=== PATIENT | female | born 1965 | race Caucasian/White ===

== ENCOUNTER → 2019-09-03 15:09 | Outpatient (BNVA) | payer SELFPAY | PROVIDERS: Family Provider Nurse Practitioner Family; Visit Provider Nurse Practitioner | DX: M19.041 Primary osteoarthritis, right hand (principal) | CPT/HCPCS: 73130 ==

== ENCOUNTER 2022-02-12 10:58 | Outpatient (CLI) | payer MEDICAID, SELFPAY ==
--- NOTE | 2022-02-12 11:03 | MM_ITS ---
WS: [id number] VIEWS: MLO and CC views both breasts. 3D digital tomosynthesis is also included in this exam. Comparison made with prior exam of 07/14/2009. Findings: There was no sign of mass, architectural distortion or suspicious calcification in either breast. Sc attered fibroglandular densities MM/[place] [id number] Impression: BI-RADS: 2-Benign FOLLOW-UP: 1 Year Follow-up This mammogram was also analyzed by the Computer Aided Detection System [employer]2 [employer] Project Manager.
== END 2022-02-12 10:59 | disposition home or self-care (01) ==
LOC: RAD 11:00
PROVIDERS: PCP Registered Nurse; Visit Provider Registered Nurse
DX: Z12.31 Encounter for screening mammogram for malignant neoplasm of breast (principal)
CPT/HCPCS: 77063; 77067

== ENCOUNTER → 2022-10-20 15:48 | Outpatient (BNVA) | payer MEDICAID, SELFPAY | PROVIDERS: PCP Registered Nurse; Visit Provider Family Medicine | DX: E11.9 Type 2 diabetes mellitus without complications (principal); Z79.4 Long term (current) use of insulin; B19.20 Unspecified viral hepatitis C without hepatic coma | CPT/HCPCS: 80053; 80061; 83036; 84443; 85025; 87522; 87902 ==

== ENCOUNTER 2022-11-17 08:18 | Outpatient (CLI) | payer MEDICAID, SELFPAY ==
--- NOTE | 2022-11-17 08:30 | US_ITS ---
WS: [id number] ULTRASOUND ABDOMEN LIMITED CLINICAL INFORMATION: B19.20 - Unspecified viral hepatitis C without hepatic coma COMPARISON: None. FINDINGS: Liver Size: Normal. Craniocaudal length: 13.4 cm. Echogenicity: Coarse Surface nodularity: None. Mass (size and location): None. Bile ducts Intrahepatic ducts: Normal. Common bile duct diameter: 0.6 cm. Gallbladder Removed Pancreas Not well visualized Right kidney: Normal. Hydronephrosis: None. Size: 10.0 cm x 6.1 cm x 5.9 cm. Abdominal aorta and IVC Visualized portions are normal. Ascites: None. US/US liver [id number] IMPRESSION: 1. Coarse hepatic echogenicity. Recommend correlation with liver function test s. Normal size liver. 2. Prior cholecystectomy. 3. Normal common bile duct. 4. No hydronephrosis in RIGHT kidney.
== END 2022-11-17 08:19 | disposition home or self-care (01) ==
LOC: RAD 08:21
PROVIDERS: PCP Registered Nurse; Visit Provider Student in an Organized Health Care Education/Training Program
DX: B19.20 Unspecified viral hepatitis C without hepatic coma (principal)
CPT/HCPCS: 76705

== ENCOUNTER → 2022-12-02 10:08 | Outpatient (BNVA) | payer MEDICAID, SELFPAY | PROVIDERS: PCP Registered Nurse; Visit Provider Student in an Organized Health Care Education/Training Program | DX: B19.20 Unspecified viral hepatitis C without hepatic coma (principal); Z11.4 Encounter for screening for human immunodeficiency virus [HIV] | CPT/HCPCS: 36415; 80053; 86705; 86706; 86709; 86803; 87340; 87522; 87806; 99205 ==

== ENCOUNTER 2023-01-17 10:12 | Outpatient (CLI) | payer MEDICAID, SELFPAY ==
[2023-01-17 12:09] LABS: Alanine Aminotransferase 153 U/L (0-33); Albumin Level 3.5 g/dL (3.5-5.2); Alkaline Phosphatase 119 U/L (35-105); Aspartate Amino Transferase 146 U/L (0-32); Blood Urea Nitrogen 13 mg/dL (6-20); Calcium 9.2 mg/dL (8.5-10.5); Carbon Dioxide 26 mmol/L (22-29); Chloride 105 mmol/L (98-107); Globulin 2.6 g/dL (1.3-4.6); Glomerular Filtration Rate 74.2 mL/min (90-130); Glucose 229 mg/dL (65-115); Osmolality Calculated 297 mOsm/kg (285-295); Sodium 140 mmol/L (136-145); Total Bilirubin 0.6 mg/dL (0.15-1.2); Total Protein 6.1 g/dL (6.6-8.7)
[2023-01-17 12:22] LABS: Hepatitis B Surface Antigen Non-Reactive (Nonreactive)
[2023-01-18 07:48] LABS: Hepatitis B Surface AG NON-REACTIVE (NON-REACTIVE)
== END 2023-01-17 10:13 | disposition home or self-care (01) ==
PROVIDERS: PCP Family Medicine; Visit Provider Student in an Organized Health Care Education/Training Program
DX: B19.20 Unspecified viral hepatitis C without hepatic coma (principal); Z11.59 Encounter for screening for other viral diseases
CPT/HCPCS: 36415; 80053; 82977; 83883; 84450; 84460; 84520; 87340

== ENCOUNTER 2023-03-04 13:52 | Outpatient (CLI) | payer MEDICAID, SELFPAY ==
--- NOTE | 2023-03-04 14:17 | MM_ITS ---
WS: [id number] BILATERAL 3D TOMOSYNTHESIS DIGITAL SCREENING MAMMOGRAPHY WITH CAD CLINICAL INFORMATION: SCREENING HISTORY: Screening mammogram. No current complaints. COMPARISON: 02/12/2022 TECHNIQUE: Bilateral CC and MLO views. FINDINGS: Scattered fibroglandular densities bilaterally. No suspicious focal mass, asymmetry, calcifications, or architectural distortion. No evidence of malignancy. IMPRESSION: MM/[place] [id number] BI-RADS: 1-Negative FOLLOW UP: 1 Year Follow-up Recommend return to annual screening mammography.
== END 2023-03-04 13:53 | disposition home or self-care (01) ==
PROVIDERS: PCP Family Medicine; Visit Provider Family Medicine
DX: Z12.31 Encounter for screening mammogram for malignant neoplasm of breast (principal)
CPT/HCPCS: 77063; 77067

== ENCOUNTER → 2023-03-22 17:24 | Outpatient (BNVA) | payer MEDICAID, SELFPAY | PROVIDERS: PCP Family Medicine; Visit Provider Family Medicine | DX: R74.01 Elevation of levels of liver transaminase levels (principal); E11.9 Type 2 diabetes mellitus without complications; M25.511 Pain in right shoulder | CPT/HCPCS: 80061; 83036 ==

== ENCOUNTER → 2023-04-22 10:26 | Outpatient (BNVA) | payer MEDICAID, SELFPAY | PROVIDERS: PCP Family Medicine; Referring Provider Family Medicine; Visit Provider Physician Assistant | DX: M25.511 Pain in right shoulder (principal); M75.41 Impingement syndrome of right shoulder | CPT/HCPCS: 20610; 73030; 99203; J3301 ==

== ENCOUNTER → 2023-06-20 14:56 | Outpatient (BNVA) | payer MEDICAID, SELFPAY | PROVIDERS: PCP Nurse Practitioner Family; Visit Provider Nurse Practitioner Family | DX: E11.9 Type 2 diabetes mellitus without complications (principal) | CPT/HCPCS: 80053; 81003; 83036; 85025 ==

== ENCOUNTER → 2023-06-30 14:56 | Outpatient (BNVA) | payer MEDICAID, SELFPAY | PROVIDERS: PCP Nurse Practitioner Family; Visit Provider Nurse Practitioner Women's Health | DX: N95.0 Postmenopausal bleeding (principal) | CPT/HCPCS: 87624 ==

== ENCOUNTER → 2023-07-14 15:24 | Outpatient (BNVA) | payer MEDICAID, SELFPAY | PROVIDERS: PCP Nurse Practitioner Family; Visit Provider Nurse Practitioner Women's Health | DX: N95.0 Postmenopausal bleeding (principal); D25.9 Leiomyoma of uterus, unspecified | CPT/HCPCS: 76830 ==

== ENCOUNTER → 2023-07-26 10:08 | Outpatient (BNVA) | payer MEDICAID, SELFPAY | PROVIDERS: PCP Nurse Practitioner Family; Visit Provider Physician Assistant | DX: M75.41 Impingement syndrome of right shoulder | CPT/HCPCS: 99213 ==

== ENCOUNTER 2023-08-23 10:45 | Outpatient (CLI) | payer MEDICAID, SELFPAY ==
--- NOTE | 2023-08-23 11:00 | MR_ITS ---
WS: [id number] MRI RIGHT SHOULDER NONCONTRAST TECHNIQUE: Sagittal T2, coronal T1, T2 and proton density imaging. Axial gradient PDE imaging. CLINICAL INFORMATION: right shoulder pain COMPARISON: None. FINDINGS: Moderate to advanced degenerative arthritis AC joint. Mild subacromial spurring. Fluid and edema in t he AC joint. Impingement on the distal supraspinatus. High-grade complete tear of the distal supraspi natus with tendon retraction to the level of the acromion. Tendon retraction measures 1.5 cm. Mild th inning of the infraspinatus with tendinopathy. Small amount of subacromial subdeltoid fluid. Normal teres minor. Biceps tendon appears intact within the bicipital groove. Subscapularis tendon ap pears intact. Tendinopathy subscapularis tendon. Fluid in the subcoracoid bursa. Biceps labral anchor appears intact. Degenerative fraying of the tiana oid labrum. IMPRESSION: 1. Moderate to advanced arthritis AC joint with fluid and edema. Subacromial subdeltoid fluid. Subac romial spurring with narrowing of the subacromial space. 2. High-grade complete tear of the supraspinatus with 1.5 cm of tendon retraction to the level of th e acromion. 3. Infraspinatus intact with tendinopathy. 4. Teres minor and subscapularis appear intact. Tendinopathy subscapularis tendon. 5. Biceps tendon appears intact within the bicipital groove. 6. Fluid in the subcoracoid bursa.
== END 2023-08-23 10:46 | disposition home or self-care (01) ==
LOC: RAD 10:46
PROVIDERS: PCP Nurse Practitioner Family; Visit Provider Physician Assistant
DX: M75.121 Complete rotator cuff tear or rupture of right shoulder, not specified as traumatic (principal); M19.011 Primary osteoarthritis, right shoulder; M75.41 Impingement syndrome of right shoulder; M67.813 Other specified disorders of tendon, right shoulder
CPT/HCPCS: 73221

== ENCOUNTER → 2023-08-26 10:15 | Outpatient (BNVA) | payer MEDICAID, SELFPAY | PROVIDERS: PCP Nurse Practitioner Family; Visit Provider Physician Assistant | DX: M75.41 Impingement syndrome of right shoulder (principal) | CPT/HCPCS: 99214 ==

== ENCOUNTER 2023-09-08 07:22 | Day surgery (SDC) | payer MEDICAID, SELFPAY ==
--- NOTE | 2023-09-07 22:59 | W.PM.OPSFHP ---
Same Day Surgery H&P Indication for Procedure/HPI DATE OF PROCEDURE: September 07, 2023 CHIEF COMPLAINT/INDICATIONFOR SURGICAL PROCEDURE: postmenopausal bleeding PREOP DIAGNOSIS: postmenopausal bleeding PLANNED PROCEDURE: Operation Date: 09/08/23 09:15 Proposed Procedures p Hysteroscopy, endometrial sampling, possible endometrial polypectomy 82587, N95.0(Not Applicable) - Rudi Gomez MD s Poss Poylpectomy(Not Applicable) - Rudi Gomez MD 58 y.o. SA3 LNMP many years ago Had bleeding episode in June Now scheduled for hysteroscopy, endometrial sampling, possible endometrial polypectomy Medications/Allergies* Home Medications Medication Instructions Recorded Confirmed Type potassium chloride 10 mg PO DIRECTED 10/20/22 08/26/23 History sitagliptin phosphate 25 mg tablet 25 mg PO DAILY 09/07/23 09/07/23 History (Cindy) Allergies/Adverse Reactions Allergy/AdvReac Type Severity Reaction Status Date / Time acetaminophen [From Tylenol] Allergy Intermediate sick Verified 08/26/23 11:23 levofloxacin [From Levaquin] Allergy ALGY-Rash Verified 09/07/23 14:43 Sulfa (Sulfonamide Allergy ALGY-Hives Verified 09/07/23 14:43 Antibiotics) Pertinent History/Comorbid Conditions* Medical History (Updated 07/27/23 @ 13:29 by GIULIANA Campbell) Post-menopausal bleeding Gallbladder calculus with acute cholecystitis History of gallbladder disease Family History (Updated 06/30/23 @ 14:17 by Sandie Rosales) Ovarian cancer Sister CAD (coronary artery disease) Mother Hyperlipidemia Father Brother Lung disease Mother Cancer Mother Hypertension Mother Denies family history of Diabetes Chronic kidney disease (CKD) Stroke Social History Smoking and tobacco/nicotine status: current every day tobacco/nicotine user smokeless tobacco Smokeless tobacco user: chewing tobacco Second hand smoke exposure: No Alcohol intake: former Year of sobriety/quit date alcohol: 2014 Substance/Drug Use: current Substance/Drug use frequency: Special occassions/opportunity only Adopted: No Household members: spouse Housing: Manufactured/Mobile home Marital status: service: No Current occupational status: unemployed Pertinent Exam Findings alert, oriented x 3, clear to auscultation bilaterally and regular rate & rhythm Recommendations Surgery/Procedure today Coding Level of Care Code Acute Code for Chg Fwd Time Spent (min) 20
[2023-09-08] VITALS (10 sets, daily range): BP systolic 131–195; BP diastolic 82–108; PULSE 59–76; RESP 14–17; TEMP 36.5–36.8; O2SAT 96–100; BMI 33.5
--- NOTE | 2023-09-08 07:50 | ANES.PREANE2 ---
Pre-Anesthetic Assessment Height/Weight: Height 1.57 m Preop Diagnosis: postmenopausal bleeding Operation Date: 09/08/23 09:15 Proposed Procedures p Hysteroscopy, endometrial sampling, possible endometrial polypectomy 87592, N95.0(Not Applicable) - Rudi Gomez MD s Poss Poylpectomy(Not Applicable) - Rudi Gomez MD Familial anesthetic complications: None Was Beta Lloyd taken within 24 hours: N/A Was Clonidine taken within 24 hours: N/A Last intake: > 8hrs Social Tobacco and No alcohol chews Exam alert, oriented x 3, clear to auscultation bilaterally and regular rate & rhythm Airway Mallampati: Class II Dentition: other (none on top, poor dentition) Chronic Renal Insufficiency Hepatic history hep C, enlarged liver Metabolic Diabetes Mellitus Anesthetic Plan ASA status: 3 Anesthesia: General Risk of > 500 ml blood loss (7ml/kg in children): No Medications/Allergies Home Medications Medication Instructions Recorded Confirmed Last Taken Type aspirin 81 mg tablet,delayed 81 mg PO DAILY 90 days #90 tabs 10/20/22 09/07/23 09/07/23 Rx release potassium chloride 10 mg PO DIRECTED PRN Cramps 10/20/22 09/08/23 07/21/23 History glucagon 1 mg solution for 1 mg SUBCUT Q20M PRN hypoglycemia 11/10/22 09/07/23 Unknown Rx injection (GlucaGen HypoKit) #1 ea furosemide 20 mg tablet (Lasix) 20 mg PO DAILY PRN edema 15 days 01/11/23 09/07/23 08/04/23 Rx #15 tabs insulin glargine 100 unit/mL (3 10 unit (0.1 mL) SUBCUT QAM #15 mL 01/11/23 09/07/23 07/06/23 Rx mL) subcutaneous pen (Lantus Solostar U-100 Insulin) potassium chloride 10 mEq 10 meq PO DAILY PRN with lasix 15 01/11/23 09/07/23 07/21/23 Rx tablet,extended release (Klor-Con) days #15 tabs metformin 500 mg tablet 250 mg (1/2 x 500 mg) PO BID 90 05/20/23 09/07/23 Unknown Rx days #90 tabs benzonatate 100 mg capsule 100 mg PO TID PRN cough #20 caps 0109/07/23 09/07/23 Rx celecoxib 200 mg capsule (Celebrex) 200 mg PO BID shoulder pain #60 07/05/23 09/07/23 09/07/23 Rx caps sitagliptin phosphate 25 mg tablet 25 mg PO DAILY 09/07/23 09/07/23 09/07/23 History (Cindy) Allergies Allergy/AdvReac Type Severity Reaction Status Date / Time acetaminophen [From Tylenol] Allergy Intermediate sick Verified 08/26/23 11:23 levofloxacin [From Levaquin] Allergy ALGY-Rash Verified 09/07/23 14:43 Sulfa (Sulfonamide Allergy ALGY-Hives Verified 09/07/23 14:43 Antibiotics) [facility] Anesthesia Medical History Post-menopausal bleeding Gallbladder calculus with acute cholecystitis History of gallbladder disease Family History Mother CAD (coronary artery disease) Cancer Hypertension Lung disease Father Hyperlipidemia Sister Ovarian cancer Brother Hyperlipidemia Denies family history of Diabetes Chronic kidney disease (CKD) Stroke Social History Smoking and tobacco/nicotine status: current every day tobacco/nicotine user smokeless tobacco Smokeless tobacco user: chewing tobacco Second hand smoke exposure: No Alcohol intake: former Year of sobriety/quit date alcohol: 2014 Substance/Drug Use: current Substance/Drug use frequency: Special occassions/opportunity only Adopted: No Household members: spouse Housing: Manufactured/Mobile home Marital status: service: No Current occupational status: unemployed Data Anesthesia Cardiac Studies: No Data to Display
--- NOTE | 2023-09-08 08:06 | W.PM.OPSUD ---
Surgery/Procedure H&P Update DATE OF PROCEDURE: September 08, 2023 DATE H&P PERFORMED: 09/07/23 H&P UPDATE INFORMATION: I have reviewed H&P completed within last 30 days, I have examined patient prior to procedure and No changes to prior documentation PREOP DIAGNOSIS: postmenopausal bleeding PLANNED PROCEDURE: Operation Date: 09/08/23 09:15 Proposed Procedures p Hysteroscopy, endometrial sampling, possible endometrial polypectomy 32823, N95.0(Not Applicable) - Rudi Gomez MD s Poss Poylpectomy(Not Applicable) - Rudi Gomez MD
[2023-09-08 08:25] LABS: Glucose Point of Care 152 mg/dL (70-110)
[2023-09-08] MEDS: sodium chloride 0.9% 1,000 ML 30 ML IV (08:28)
--- NOTE | 2023-09-08 09:50 | P.OP_ITS ---
Operative Report Date of procedure: September 08, 2023 Pre-op diagnosis: postmenopausal bleeding Post-op diagnosis: same Post-op findings: two benign-appearing endometrial polyps Minimal endometrial tissue Procedure done: hysteroscopy Endometrial polypectomy with Myosure Curettage of uterus Implants: none Specimens removed/disposition: endometrial tissue Surgeon: Rudi Gomez MD Anesthesia: MAC Estimated blood loss (mL): 0 Complications: none Condition: stable Disposition: PACU Brief History: 58 y.o. with postmenopausal bleeding Procedure: Informed consent signed. Patient was taken to the operating room. Anesthesia was induced. Patient was placed in dorsolithotomy position, prepped and draped for hysteroscopy. A bivalve speculum was placed in the vagina. The anterior lip of the cervix was grasped with a sharp-toothed tenaculum. The cervix was serially dilated with Hegar dilators. The uterus was sounded to 8 cm. A hysteroscope was placed into the endometrial cavity. The endometrial cavity was seen have two benign- appearing endometrial polyps. There was minimal endometrial tissue. A Myosure device was used to remove the polyps and perform endometrial sampling. The endometrial cavity was seen to be intact. The hysteroscope and Myosure were then removed. Endometrial curettage was done with a sharp curette. Endometrial tissue was sent to pathology. The sharp-toothed tenaculum was removed. There was no bleeding from the endometrial cavity or cervix. The patient was then placed supine and awakened and taken to the PACU. Postop condition: stable EBL: none Sponge and instruments counts were normal x 2 Complications: none
[2023-09-08] MEDS: hyDRALAzine 20 mg/mL INJ 1 mL (10:17)
--- NOTE | 2023-09-08 11:20 | ANE.PACU2 ---
Inpatient post-anesthesia follow up: Airway intact: Yes Vital signs: Temperature 97.9 F Pulse Rate 76 Respiratory Rate 16 Blood Pressure 141/82 Pulse Oximetry 100 Oxygen Delivery Me thod Room Air Oxygen Flow Rate 6 Fraction of Inspir ed Oxygen Hydration adequate: Yes Nausea and vomiting: No Pain level: 1 Mental status: Baseline
== END 2023-09-08 11:20 | disposition home or self-care (01) ==
PROVIDERS: PCP Nurse Practitioner Family; Visit Provider Obstetrics & Gynecology
PROC: 0UJD8ZZ Inspection of Uterus and Cervix, Via Natural or Artificial Opening Endoscopic (ICD-10-PCS; CPT 58555; principal; 2023-09-08 09:05)
PROC: (CPT 58558; 2023-09-08 09:05)
DX: N95.0 Postmenopausal bleeding (principal); N84.0 Polyp of corpus uteri; F17.220 Nicotine dependence, chewing tobacco, uncomplicated; Z86.19 Personal history of other infectious and parasitic diseases; E11.9 Type 2 diabetes mellitus without complications; Z79.82 Long term (current) use of aspirin
CPT/HCPCS: 58558; 36416; 82962; 88305; J0360; J1100; J2250; J2405; J2704; J3010; J7030

== ENCOUNTER 2023-10-05 07:19 | Day surgery (SDC) | payer MEDICAID, SELFPAY ==
[2023-10-05] VITALS (11 sets, daily range): BP systolic 122–161; BP diastolic 72–116; PULSE 57–80; RESP 13–22; TEMP 36.1–36.4; O2SAT 92–100; BMI 33.5
[2023-10-05] MEDS: sodium chloride 0.9% 1,000 ML 30 ML IV (07:48)
[2023-10-05] MEDS: scopolamine 1.5 Patch 1 PATCH TRANSDERMA (08:01)
[2023-10-05 08:18] LABS: Glucose Point of Care 152 mg/dL (70-110)
--- NOTE | 2023-10-05 09:22 | P.ANESASSM_ITS ---
Pre-Anesthetic Assessment Height/Weight: Height 1.57 m Weight 83.007 kg Temp Pulse Resp BP Pulse Ox O2 Del Method 97.3 F L 80 15 161/116 99 Room Air 10/05/23 07:47 10/05/23 07:47 10/05/23 07:47 10/05/23 07:47 10/05/23 07:47 10/05/23 07:48 Operation Date: 10/05/23 09:10 Proposed Procedures p Shoulder Arthroscopy(Right) - Job Alpine, DO s Rotator Cuff Repair - Arthroscopy(Right) - Job Alpine, DO s AC Joint Resection(Right) - Job Alpine, DO s Subacromial Decompression(Right) - Job Alpine, DO s possible biceps tenotomy versus tenodesis(Right) - Job Alpine, DO Familial anesthetic complications: None Was Beta Lloyd taken within 24 hours: N/A Was Clonidine taken within 24 hours: N/A Last intake: > 8 hrs Social Tobacco and No alcohol Exam alert, oriented x 3, clear to auscultation bilaterally and regular rate & rhythm Airway Mallampati: Class III Hepatic Hepatitis Metabolic Diabetes Mellitus Anesthetic Plan ASA status: 3 Anesthesia: General and Regional (specify below) Risk of > 500 ml blood loss (7ml/kg in children): No Medications/Allergies Home Medications Medication Instructions Recorded Confirmed Last Taken Type aspirin 81 mg tablet,delayed 81 mg PO DAILY 90 days #90 tabs 10/20/22 10/04/23 09/27/23 Rx release potassium chloride 10 mg PO DIRECTED PRN Cramps 10/20/22 10/04/23 10/04/23 History glucagon 1 mg solution for 1 mg SUBCUT Q20M PRN hypoglycemia 11/10/22 10/04/23 10/04/23 Rx injection (GlucaGen HypoKit) #1 ea furosemide 20 mg tablet (Lasix) 20 mg PO DAILY PRN edema 15 days 01/11/23 10/04/23 10/04/23 Rx #15 tabs insulin glargine 100 unit/mL (3 10 unit (0.1 mL) SUBCUT QAM #15 mL 01/11/23 10/04/23 10/04/23 Rx mL) subcutaneous pen (Lantus Solostar U-100 Insulin) metformin 500 mg tablet 250 mg (1/2 x 500 mg) PO BID 90 05/20/23 10/04/23 Unknown Rx days #90 tabs benzonatate 100 mg capsule 100 mg PO TID PRN cough #20 caps 07/05/23 10/04/23 10/04/23 Rx celecoxib 200 mg capsule (Celebrex) 200 mg PO BID shoulder pain #60 07/05/23 10/04/23 10/04/23 Rx caps sitagliptin phosphate 25 mg tablet 25 mg PO DAILY 09/07/23 10/04/23 09/27/23 History (Januvia) tramadol 50 mg tablet 50 mg PO BID PRN pain #10 tabs 09/08/23 10/04/23 10/04/23 Rx Allergies Allergy/AdvReac Type Severity Reaction Status Date / Time acetaminophen [From Tylenol] Allergy Intermediate sick Verified 10/05/23 07:39 levofloxacin [From Levaquin] Allergy ALGY-Rash Verified 10/05/23 07:39 Sulfa (Sulfonamide Allergy ALGY-Hives Verified 10/05/23 07:39 Antibiotics) [facility] Anesthesia Medical History Post-menopausal bleeding Gallbladder calculus with acute cholecystitis History of gallbladder disease Family History Mother CAD (coronary artery disease) Cancer Hypertension Lung disease Father Hyperlipidemia Sister Ovarian cancer Brother Hyperlipidemia Denies family history of Diabetes Chronic kidney disease (CKD) Stroke Social History Smoking and tobacco/nicotine status: current every day tobacco/nicotine user smokeless tobacco Smokeless tobacco user: chewing tobacco Second hand smoke exposure: No Alcohol intake: former Year of sobriety/quit date alcohol: 2014 Substance/Drug Use: current Substance/Drug use frequency: Special occassions/opportunity only Adopted: No Household members: spouse Housing: Manufactured/Mobile home Marital status: service: No Current occupational status: unemployed Data Anesthesia Cardiac Studies: No Data to Display
--- NOTE | 2023-10-05 09:25 | ANES.PROC ---
Anesthesia Procedures Procedure/Date: 10/05/23 Nerve Block ^: Nerve Block 1: Main Anesthesia: general anesthesia Time Out Performed: Yes Consent: requested by attending/covering physician, from patient, from other, risks and benefits reviewed and patient agrees to proceed Nerve block location: interscalene (R) Anesthesia monitors applied: pulse oximetry, EKG, BP cuff and oxygen Nerve block position: semi sitting Anesthetic Used: ropivicaine 0.5% (30 ml) and with decadron (4 mg) Ultrasound used to: recognize landmarks, visualize and ID brachial plexus, in supraclavicular region and visualize and ID interscalene groove Nerve Stimulator Used?: No Interscalene/Femoral BLK: 2 stimuplex 22 g needle used for position and inplane approach, visualize local anesthetic spread and no vascular puncture identified Injection: neg aspiration of heme Patient Tolerated Procedure: well and no complications Complications: none
--- NOTE | 2023-10-05 09:35 | W.PM.OPSFHP ---
Same Day Surgery H&P Indication for Procedure/HPI DATE OF PROCEDURE: October 05, 2023 CHIEF COMPLAINT/INDICATIONFOR SURGICAL PROCEDURE: Right shoulder pain with rotator cuff tear, subacromial impingement AC joint arthritis PREOP DIAGNOSIS: Right shoulder rotator cuff tear, subacromial impingement, AC joint thrice, PLANNED PROCEDURE: Operation Date: 10/05/23 09:10 Proposed Procedures p Shoulder Arthroscopy(Right) - Job Maritza, DO s Rotator Cuff Repair - Arthroscopy(Right) - Job Fitzpatrickatt, DO s AC Joint Resection(Right) - Job Mayaguez, DO s Subacromial Decompression(Right) - Job Mayaguez, DO s possible biceps tenotomy versus tenodesis(Right) - Job Mayaguez, DO Medications/Allergies* Home Medications Medication Instructions Recorded Confirmed Type potassium chloride 10 mg PO DIRECTED PRN Cramps 10/20/22 10/04/23 History sitagliptin phosphate 25 mg tablet 25 mg PO DAILY 09/07/23 10/04/23 History (Cindy) Allergies/Adverse Reactions Allergy/AdvReac Type Severity Reaction Status Date / Time acetaminophen [From Tylenol] Allergy Intermediate sick Verified 10/05/23 07:39 levofloxacin [From Levaquin] Allergy ALGY-Rash Verified 10/05/23 07:39 Sulfa (Sulfonamide Allergy ALGY-Hives Verified 10/05/23 07:39 Antibiotics) Pertinent History/Comorbid Conditions* Medical History (Updated 07/27/23 @ 13:29 by GIULIANA Campbell) Post-menopausal bleeding Gallbladder calculus with acute cholecystitis History of gallbladder disease Family History (Updated 06/30/23 @ 14:17 by Sandie Rosales) Ovarian cancer Sister CAD (coronary artery disease) Mother Hyperlipidemia Father Brother Lung disease Mother Cancer Mother Hypertension Mother Denies family history of Diabetes Chronic kidney disease (CKD) Stroke Social History Smoking and tobacco/nicotine status: current every day tobacco/nicotine user smokeless tobacco Smokeless tobacco user: chewing tobacco Second hand smoke exposure: No Alcohol intake: former Year of sobriety/quit date alcohol: 2014 Substance/Drug Use: current Substance/Drug use frequency: Special occassions/opportunity only Adopted: No Household members: spouse Housing: Manufactured/Mobile home Marital status: service: No Current occupational status: unemployed Pertinent Exam Findings alert, oriented x 3, operative site marked and procedure specific exam findings Refer to last office note on 08/26/2023 for for full detailed orthopedic examination as patient has a block this morning on preoperative evaluation examination as listed below: Right Shoulder -Tender to palpation over ac joint, biceps tendon, lateral and posterior aspect of shoulder -Range of motion active 0-70 degrees with passive 70-100 degrees, abduction 0-60 degrees- pain with all ROM -Rotator cuff strength external and internal 5/5 -Jobes test-positive with weakness and pain -Speed's Test-positive with weakness and pain -O'Briens test-positive with weakness and pain -Sagastume impingement-positive -Empty can test-positive with weakness and pain -Radial pulse 2+, normal cap refill under 2 seconds and patient can wiggle fingers. -Sensation to hand intact Recommendations Surgery/Procedure today Other Plans: Right shoulder diagnostic and surgical arthroscopy with rotator cuff repair, AC joint resection, subacromial decompression and possible biceps tenotomy versus tenodesis Plan to proceed with surgery today she understands the ins and outs of procedure the risk benefits complication alternatives of surgery. Risk of surgery include but are not limited to make it better make it worse injury to nerves vessels or tendons infection arthrofibrosis possible failure of rotator cuff repair or further surgery. Patient understands and agrees with current plan. All questions answered. Coding Level of Care Code Acute Code for Venancio Eisenberg
[2023-10-05] MEDS: ceFAZolin 2,000 MG in sodium chloride 0.9% (plus) 50 ML 100 MG IV (09:38)
[2023-10-05] MEDS: EPINEPHrine 1 mg/mL INJ 2 MG XX (10:16)
--- NOTE | 2023-10-05 11:25 | W.PM.BPON ---
Date of Procedure:10/05/2023 Surgeon: Job Salas DO [employer] Specials(s): Arik Salas PA-C Procedure(s) performed: Right shoulder diagnostic and surgical arthroscopy with biceps tenodesis Right shoulder diagnostic and surgical arthroscopy with rotator cuff repair of supraspinatus tendon (large) Right shoulder diagnostic and surgical arthroscopy with labral debridement Right shoulder diagnostic and surgical arthroscopy with acromioclavicular joint resection (distal clavicle excision) Right shoulder diagnostic and surgical arthroscopy with subacromial decompression (acromioplasty and bursectomy) Findings of the procedure(s): Patient found to have a large rotator cuff tear of the supraspinatus tendon as well as bicep anchor instability and biceps tendon tearing at the insertion site. As a result underwent bicep tenodesis and rotator cuff repair procedure went as planned without issues or complications. Will follow rotator cuff protocol. Estimated blood loss: 10 mL Specimen(s) removed: None Post-operative diagnosis: Right shoulder rotator cuff tear, bicep tendon tear, labral tearing, AC joint arthritis, subacromial impingement
--- NOTE | 2023-10-05 11:27 | P.OP_ITS ---
Operative Report Date of procedure: October 05, 2023 Surgeon: Job Salas DO Rotary Slicing Machine Operator: Arik Salas PA-C: PA was necessary for assistance in this case with shoulder positioning to execute the procedure, assistance with instrumentation, as well as implant fixation when necessary, assist with wound closure and dressing application. Procedure: Preoperative diagnosis: Right shoulder pain with rotator cuff tear, subacromial impingement AC joint arthritis Post-op?diagnosis: Right?shoulder?labral tear Right?shoulder?biceps tendon tear Right?shoulder?rotator cuff tear Right?shoulder?AC joint arthritis Right?shoulder?subacromial bursitis/impingement Procedure done: Right shoulder diagnostic and surgical arthroscopy with biceps tenodesis Right shoulder diagnostic and surgical arthroscopy with rotator cuff repair of supraspinatus tendon (large) Right shoulder diagnostic and surgical arthroscopy with labral debridement Right shoulder diagnostic and surgical arthroscopy with acromioclavicular joint resection (distal clavicle excision) Right shoulder diagnostic and surgical arthroscopy with subacromial decompression (acromioplasty and bursectomy) Surgeon: Job Salas DO Estimated blood loss: 10mL IV fluids: See anesthesia record Implants: Arthrex biceps tenodesis 2.9 loop and tack kit Arthrex 4.75/5.5 speed bridge implant system kit Complications: None Condition: stable Disposition: same day Brief History: Patient been seen and worked up in the outpatient setting for right?shoulder?pain.? Pt had an MRI which showed findings below.? Patient's failed conservative treatment and has weakness.? We talked about treatment?options far as nonoperative and?operative intervention..? We talked about risk benefits complication alternatives surgical nonsurgical treatment?options.? Understanding risk of surgery he agrees to proceed with surgical intervention.? All questions have been answered at this time.? Patient elects proceed with surgery and consent obtained in office. IMPRESSION: 1. Moderate to advanced arthritis AC joint with fluid and edema. Subacromial subdeltoid fluid. Subacromial spurring with narrowing of the subacromial space. 2. High-grade complete tear of the supraspinatus with 1.5 cm of tendon retraction to the level of the acromion. 3. Infraspinatus intact with tendinopathy. 4. Teres minor and subscapularis appear intact. Tendinopathy subscapularis tendon. 5. Biceps tendon appears intact within the bicipital groove. 6. Fluid in the subcoracoid bursa. Procedure: Patient seen evaluated in the preoperative holding area.? Consent reviewed and signed with patient.? Once again reviewed patient's MRI results as well as? planned surgical intervention.? Correct extremity marked.? Patient seen evaluated by anesthesia department received regional anesthesia.? Once ready for surgery was taken back to the?operative suite.? Patient then subsequently underwent anesthesia per the anesthesia department was transported onto the OR table.? Patient was then placed into a lateral decubitus position with a beanbag and was appropriately secured to the bed.? All bony prominences well-padded.? Patient then had the right upper extremity was then prepped and draped in standard orthopedic fashion.? Patient received appropriate preoperative antibiotics.? Final timeout performed. The right upper extremity was then held in hanging from traction utilizing sterile technique.? Next started with standard diagnostic and surgical arthroscopy with posterior portal position introduced arthroscope into the glenohumeral joint.? Visualized the glenohumeral joint I then introduced a spinal needle within the rotator cuff interval to confirm appropriate anterior portal placement.? Once this was confirmed I then made my small incision and then introduced my arthroscopic shaver into the glenohumeral joint.? After flushing the joint fluid, was clearly evident patient had biceps tendon tearing as well as Superior labral tear. Patient had appreciable unstable biceps anchor most pronounced in the superior labrum. Given there appears to be healthy intra-articular tendon plan was for an intra-articular biceps tenodesis at the superior portion as it enters the intertubercular groove. Thermal wand introduced into the rotator interval. I then release of the rotator interval to have appropriate visualization and the ability to perform biceps tenodesis. At this point I established a purple passport cannula which was introduced. Next I performed an Arthrex loop and tap biceps tenodesis. Passer was then made around the tendon luggage tag stitch around and then thru the tendon and around twice I then utilized a thermal wand to release the biceps tendon at the anchor to perform with tenotomy. I then loaded with suture onto an Arthrex 4.75 swivel lock suture anchor. A punch was then placed in appropriate position at the entry point into the intertubercular groove just superior to the subscapularis tendon. Punch was then introduced to the appropriate depth. The suture loaded on the swivel lock was then advanced held under appropriate tension and shoulder lock anchor was then advanced and had excellent fixation. Excess suture was then cut biceps tenodesis was complete. I then utilized a thermal wand to seal the edges of the superior labrum. Next I evaluated the subscapularis tendon which was intact and no evidence of tear. ?Next there was significant labral tearing at biceps anchor and circumferential.? ? I then subsequently utilized a a arthroscopic shaver and thermal wand to perform a labral debridement.? This point time I then visualized the glenohumeral joint.? The glenohumeral joint was found to have grade 1-2? chondromalacia throughout.? Infrapatellar pouch was free of loose bodies from viewing the posterior portal.? Next a visualized the rotator cuff superiorly and there was found full-thickness rotator cuff tear.? I utilized a spinal needle to mayito this location.?? This completed my work within the glenohumeral joint all fluid was suctioned free of the joint.? ?Next I reintroduced the arthroscope posteriorly.? And went to the subacromial space.? I established my lateral working portal at the site of which my spinal needle was marking of the rotator cuff tear.? Thermal wand was then introduced laterally and then I subsequently performed extensive bursectomy of the subacromial space.? Patient had a large anterior bone spur.? At this point time I proceeded with my AC joint resection thermal wand was used and track to the anterior edge of the acromion and then tracked all the way to the AC joint.? Once identified the AC joint this was very arthritic in nature.? Thermal wand was placed anteriorly to establish appropriate plane for AC joint resection.? Once appropriate margins and anterior inferior and anterior capsule was released I then introduced arthroscopic shaver and a bur and performed AC joint resection of both the acromion to cope plane at the AC joint and a distal clavicle resection was then performed totaling 1 cm in size and was confirmed.? This completed my AC joint resection and I then introduced the arthroscopic shaver la terally while continuing to view posteriorly.? I then performed an acromioplasty to complete my subacromial decompression prior to fixing the rotator cuff tear.? Next the arthroscopic shaver was then used previous spinal needle spot that is marked large full-thickness rotator cuff tear with over centimeter and a half of tendon retraction. At this point in time given the size this would be amenable for an Arthrex speed bridge as result I subsequently planned for 2 medial anchors and 2 lateral row anchors. At this point in time I subsequently utilized a ring curette as well as arthroscopic shaver to debride the footprint in preparation for rotator cuff repair as well as utilize thermal wand to mayito my lateral anchor spots. Utilize tissue grasper to evaluate the excursion and this would be amenable for repair as well as good satisfactory tendon quality. I subsequently utilized a spinal needle to create a accessory portal and man's angle subsequently loaded my punch subsequently malleted to punches for the 2 medial row anchors these were subsequently punched and swivel locks were advanced with excellent fixation with a total of 4 suture tape strands. A as result I loaded and Arthrex scorpion with fiber tape and subsequently. It made sequential purchases from anterior to posterior with appropriate spread and excursion through the rotator cuff tear and had excellent purchase. My assistance was utilized to pull each suture pass through the anterior portal site. I utilized a blue passport cannula to prevent any soft tissue bridges. Once all 4 passes were made I then subsequently completed the speed bridge by grabbing sutures 1 and 3 and loaded them in the anterior lateral anchor which was then held under appropriate tension punch was placed and Arthrex swivel lock was then subsequently advanced maintaining appropriate tension-free repair in advance with excellent fixation. Excess sutures were then subsequently removed. I then grabbed sutures 2 and 4 and loaded these for the lateral and posterior anchor. These were subsequently loaded held in tension-free repair punch was placed swivel lock was then advanced and had excellent fixation of tension-free repair of the large rotator cuff tear. Sutures were then cut with an arthroscopic suture cutter and subsequently evaluated the rotator cuff repair.? Repair was found to be satisfactory?shoulder?was taken through range of motion and the repair moved as a unit with no evidence of loss of fixation. ?I then switched the arthroscope to the lateral portal to confirm this tension- free repair.? I took the?shoulder?through range of motion and the rotator cuff repair was stable and moved as a unit. ?Next I then introduced the arthroscopic shaver posteriorly to complete my subacromial decompression appropriate complaining all the way up to the lateral edge of the acromion.? This completed the surgery.? All fluid was suctioned from the?shoulder.? All instruments were removed.? The lateral incision was then closed with nylon stitches.? As well as the portal sites closed with portal nylon stitches.? Xeroform 4 x 4's ABD and tape was then applied to the right?shoulder?and was placed into a?shoulder?abduction pillow sling for rotator cuff repair.? Patient was then awakened from anesthesia and then taken back to PACU in stable condition.? Patient tolerated procedure without any issues. Disposition: Patient taken back in stable condition recovering well.? Dressings on in place clean dry and intact.? Will be nonweightbearing to the right upper extremity.? Follow rotator cuff repair protocol.? Patient to follow-up with me in the office in 2 weeks.? Patient will receive appropriate discharge instruction as well as pain medication postoperatively.? All questions answered.? We will contact the office for any questions or concerns
--- NOTE | 2023-10-05 11:34 | PM.PACU ---
PACU note Narrative: Patient is a 58-year-old female just underwent a right shoulder arthroscopy. Patient transferred to PACU in stable condition. Pain is well controlled. shoulder Dressing on , dry and in place. Patient's operative arm is in a shoulder immobilizer. Patient is awake and alert and able to respond to my questions accordingly. Patient's fingers are warm with good perfusion. Normal cap refill under 2 seconds. Unable to assess further range of motion in arm due to sling. Unable to assess sensation due to residual localized anesthetic. Exam: awake Disposition: discharged
[2023-10-05] MEDS: HYDROcodone-acetaminophen 5-325 mg Tablet 1 TAB PO (12:30)
--- NOTE | 2023-10-05 12:50 | ANE.PACU2 ---
Inpatient post-anesthesia follow up: Airway intact: Yes Vital signs: Temperature 97.5 F Pulse Rate 73 Respiratory Rate 18 Blood Pressure 152/90 Pulse Oximetry 95 Oxygen Delivery Me thod Room Air Oxygen Flow Rate 8 Fraction of Inspir ed Oxygen Hydration adequate: Yes Nausea and vomiting: No Pain level: 1 Mental status: Baseline
== END 2023-10-05 12:53 | disposition home or self-care (01) ==
PROVIDERS: PCP Nurse Practitioner Family; Visit Provider Student in an Organized Health Care Education/Training Program
PROC: (CPT 29805; principal; 2023-10-05 09:00)
PROC: (CPT 29827; 2023-10-05 09:00)
PROC: 0RSG0ZZ Reposition Right Acromioclavicular Joint, Open Approach (ICD-10-PCS; CPT 29824; 2023-10-05 09:00)
PROC: (CPT 29826; 2023-10-05 09:00)
DX: M75.101 Unspecified rotator cuff tear or rupture of right shoulder, not specified as traumatic (principal); M75.41 Impingement syndrome of right shoulder; S46.111A Strain of muscle, fascia and tendon of long head of biceps, right arm, initial encounter; M19.011 Primary osteoarthritis, right shoulder; X58.XXXA Exposure to other specified factors, initial encounter; Z79.82 Long term (current) use of aspirin; Z79.4 Long term (current) use of insulin; F17.200 Nicotine dependence, unspecified, uncomplicated
CPT/HCPCS: 29824; 29826; 29827; 36416; 82962; C1713; J0171; J0330; J0690; J1100; J2250; J2371; J2405; J2704; J2710; J2795; J3010; J3490; J7030

== ENCOUNTER 2023-12-08 06:00 | Outpatient (RCR) | payer MEDICAID, SELFPAY | END 2023-12-11 23:59 | disposition home or self-care (01) | LOC: WPT 06:00 | PROVIDERS: Visit Provider Physician Assistant | DX: Z47.89 Encounter for other orthopedic aftercare (principal) | CPT/HCPCS: 97161 ==

== ENCOUNTER 2023-12-12 06:00 | Outpatient (RCR) | payer MEDICAID, SELFPAY | END 2024-01-11 23:59 | disposition home or self-care (01) | LOC: WPT 06:00 | PROVIDERS: Visit Provider Physician Assistant | DX: Z47.89 Encounter for other orthopedic aftercare (principal) | CPT/HCPCS: 97110; 97112; 97140; 97530 ==

== ENCOUNTER → 2023-12-30 11:23 | Outpatient (BNVA) | payer MEDICAID, SELFPAY | PROVIDERS: Visit Provider Physician Assistant | DX: Z98.890 Other specified postprocedural states (principal) | CPT/HCPCS: 99213 ==

== ENCOUNTER → 2024-01-25 13:10 | Outpatient (BNVA) | payer MEDICAID, SELFPAY | PROVIDERS: PCP Nurse Practitioner Family; Visit Provider Nurse Practitioner Family | DX: Z79.4 Long term (current) use of insulin (principal); E11.9 Type 2 diabetes mellitus without complications | CPT/HCPCS: 83036 ==

== ENCOUNTER → 2024-03-07 15:03 | Outpatient (BNVA) | payer MEDICAID, SELFPAY | PROVIDERS: PCP Nurse Practitioner Family; Visit Provider Physician Assistant | DX: Z98.890 Other specified postprocedural states (principal) | CPT/HCPCS: 99213 ==

== ENCOUNTER 2024-05-12 14:24 | Inpatient (IN) | payer MEDICAID, SELFPAY ==
[2024-05-12] VITALS (48 sets, daily range): BP systolic 91–157; BP diastolic 72–105; PULSE 81–113; RESP 14–27; TEMP 36.3–37; O2SAT 94–100; BMI 31.9
--- NOTE | 2024-05-12 14:30 | XRR_ITS ---
PROCEDURE INFORMATION: Exam: XR Chest Exam date and time: 05/12/2024 3:26 PM Age: 59 years old Clinical indication: Other: Altered mental status TECHNIQUE: Imaging protocol: Radiologic exam of the chest. Views: 1 view. COMPARISON: MR shoulder RT wo con* [id number] 08/23/2023 11:23 AM FINDINGS: Lungs: Unremarkable. No consolidation. Pleural spaces: Unremarkable. No pleural effusion. No pneumothorax. Heart/Mediastinum: Unremarkable. No cardiomegaly. Bones/joints: Unremarkable. XR/XR chest 1V portable [id number] IMPRESSION: No acute findings.
--- NOTE | 2024-05-12 14:31 | ECG_ITS ---
[facility] Test Date: 2024-05-12 Pat Name: Kiah Hawkins Department: Room: Gender: Female End User Consultant: : 1965 Requested By: Adriano Medley Order Number: [id number] Salazar MD: Alex Piper M.D. Measurements Intervals [place]rick Rate: 104 P: 7 PA: 136 QRS: 24 QRSD: 91 T: 15 QT: 357 QTc: 472 Interpretive Statements SINUS TACHYCARDIA WITH OCCASIONAL SUPRAVENTRICULAR PREMATURE COMPLEXES SEPTAL MYOCARDIAL INFARCTION , PROBABLY OLD [40+ ms Q WAVE IN V1/V2] No previous ECG available for comparison Electronically Signed On 05-13-2024 18:51:17 FRUIT PICKER MACHINE OPERATOR by Alex Piper M.D. [email or web address]
--- NOTE | 2024-05-12 14:34 | ED_ITS ---
HPI - General Adult 2 General: Chief complaint: General Medical Stated complaint: UNRESPONSIVE Time Seen by Provider: 05/12/24 14:30 Source: EMS Mode of arrival: EMS Limitations: altered mental status History of Present Illness: EMS called the patient for being unresponsive. First responders witnessed a seizure, so did EMS. EMS stated family stated that when her blood sugar is high she has seizures. Blood sugar read high per EMS. Per EMS she was not feeling good this morning she drank a large milkshake and the family tried to arouse her she would not arouse. Last known well was around 9 AM. Patient was given 2.5 mg of Versed IV and route by EMS for seizure activity. Related Data Home Medications Medication Instructions Recorded Confirmed potassium chloride 10 mg PO DIRECTED PRN Cramps 10/20/22 03/07/24 ondansetron 4 mg disintegrating 4 mg PO DAILY 10/11/23 03/07/24 tablet Previous Rx's Medication Instructions Recorded aspirin 81 mg tablet,delayed 81 mg PO DAILY 90 days #90 tabs 10/20/22 release glucagon 1 mg solution for 1 mg SUBCUT Q20M PRN hypoglycemia 11/10/22 injection (GlucaGen HypoKit) #1 ea furosemide 20 mg tablet (Lasix) 20 mg PO DAILY PRN edema 15 days 01/11/23 #15 tabs metformin 500 mg tablet 250 mg (1/2 x 500 mg) PO BID 90 05/20/23 days #90 tabs benzonatate 100 mg capsule 100 mg PO TID PRN cough #20 caps 07/05/23 methocarbamol 500 mg tablet 500 mg PO TID PRN muscle spasms 10/15/23 and pain postop 14 days #42 tabs oxycodone 5 mg tablet 5 mg PO Q4H PRN pain postop 7 days 10/15/23 #42 tabs celecoxib 200 mg capsule (Celebrex) 200 mg PO BID shoulder pain #60 10/24/23 caps sitagliptin phosphate 25 mg tablet See Rx Instructions .Route 10/31/23 (Wenceslaouvia) .COMPLEX #30 tabs blood sugar diagnostic #100 ea 11/15/23 tramadol 50 mg tablet 50 mg PO Q6H PRN pain 5 days #20 12/20/23 tabs insulin glargine 100 unit/mL (3 10 unit (0.1 mL) SUBCUT QAM #15 mL 02/24/24 mL) subcutaneous pen (Lantus Solostar U-100 Insulin) tramadol 50 mg tablet 50 mg PO Q6H PRN pain #90 tabs 02/24/24 prednisone 20 mg tablet 20 mg PO DAILY #15 tabs 03/07/24 Allergies Allergy/AdvReac Type Severity Reaction Status Date / Time acetaminophen [From Tylenol] Allergy Severe hives Verified 03/07/24 15:11 levofloxacin [From Levaquin] Allergy ALGY-Rash Verified 03/07/24 15:11 Sulfa (Sulfonamide Allergy ALGY-Hives Verified 03/07/24 15:11 Antibiotics) Review of Systems 2 General: Reports: 10 or more systems reviewed and unremarkable except in HPI and below PFSH ED 2 PFSH: Medical History Type 2 diabetes mellitus Screening for HIV (human immunodeficiency virus) Transaminitis Post-menopausal bleeding Gallbladder calculus with acute cholecystitis History of gallbladder disease Family History Mother CAD (coronary artery disease) Cancer Hypertension Lung disease Father Hyperlipidemia Sister Ovarian cancer Brother Hyperlipidemia Denies family history of Diabetes Chronic kidney disease (CKD) Stroke Social History Smoking and tobacco/nicotine status: current every day tobacco/nicotine user (Chews tabacco) smokeless tobacco Smokeless tobacco user: chewing tobacco Second hand smoke exposure: No Alcohol intake: former Year of sobriety/quit date alcohol: 2014 Substance/Drug Use: current Substance/Drug use frequency: Special occassions/opportunity only Adopted: No Household members: spouse Housing: Manufactured/Mobile home Marital status: service: No Current occupational status: unemployed Physical Exam 2 Const: COMMON NORMALS: no acute distress, average body habitus and healthy appearing; limitations (Altered mental status) OTHER: Responsive to painful stimuli HENMT: COMMON NORMALS: normocephalic, atraumatic, external ears normal and Normal external nose present HEAD & SCALP: normocephalic and atraumatic N OSE: Normal external nose present EXTERNAL EAR: Yes external ears normal Eye: COMMON NORMALS: Equal, round and reactive pupils present, EOMs intact bilaterally, conjunctivae normal and no scleral icterus CONJUNCTIVA: Yes conjunctivae normal PUPIL: Yes Equal, round and reactive pupils present Neck/C-Spine: COMMON NORMALS: no JVD Chest: COMMONS NORMALS: normal inspection of the chest and normal palpation of entire chest wall Resp: COMMON NORMALS: normal respiratory effort, No retractions, No use of accessory muscles and clear to auscultation bilaterally AUSCULTATION: clear to auscultation bilaterally Cardio: COMMON NORMALS: no JVD, regular rate, regular rhythm, S1 normal heart sound present, S2 normal heart sound present, No gallops present (Cardio), No clicks present (Cardio), No murmurs present (Cardio) and No rub (Cardio) R ATE: regular rate RHYTHM: regular rhythm HEART SOUNDS: S1 normal heart sound present and S2 normal heart sound present GI: COMMON NORMALS: Normal to inspection, nondistended, normoactive bowel sounds present, Soft to palpation, non-tender, No hepatosplenomegaly present and no masses PALPATION: Yes Soft to palpation and Yes No hepatosplenomegaly present Extremity: OTHER: Negative pretibial bilateral lower extremity edema Neuro: OTHER: Will move all extremities to painful stimuli Course 2 Vital Signs: Vital signs: Vital Signs Temperature 98.5 F 05/12/24 14:26 Pulse Rate 88 05/12/24 18:00 Respiratory Rate 15 05/12/24 18:00 Blood Pressure 147/91 05/12/24 18:00 Pulse Oximetry 98 05/12/24 18:00 Oxygen Delivery Me thod Room Air 05/12/24 15:12 MDM - General Adult Medical Decision Making Patient brought in by EMS for altered mental status, seizure and hypoglycemia. Patient did get combative in her altered state and ended up being put in 4 point restraints for her own safety. Patient's glucose came back over 700 she was given IV insulin, blood glucose came down to the 400s. Chest x-ray and head CT was obtained both negative, patient's lactic acid was elevated at 4.5 as well as her anion gap. Dr. Tony was consulted who would like her blood sugar rechecked and she will come down and evaluate her. [facility] with telemetry Medical Records I reviewed the patient's medical records. Lab Data I reviewed the patient's lab results. 05/12/24 13:50 05/12/24 13:50 Radiology Impressions Chest X-Ray 05/12/24 14:30 IMPRESSION: No acute findings. Head CT 05/12/24 16:26 IMPRESSION: There mild are senescent changes of the brain as described above. No evidence for large acute ischemic infarction or acute intracranial injury. Laboratory Results WBC 11.76 10^3/uL (3.29-11.43) H 05/12/24 13:50 RBC 5.82 10^6/uL (3.85-5.65) H 05/12/24 13:50 Hgb 15.10 g/dL (11.27-16.99) 05/12/24 13:50 Hct 47.8 % (36-47) H 05/12/24 13:50 MCV 82.1 fl (85-98) L 05/12/24 13:50 MCH 25.9 pg (27-33) L 05/12/24 13:50 MCHC 31.6 g/dL (30-55) 05/12/24 13:50 RDW 12.5 % (12.1-15.1) 05/12/24 13:50 Plt Count 270 10^3/cmm (157-399) 05/12/24 13:50 MPV 11.3 fL (7.4-10.4) H 05/12/24 13:50 Neut % (Auto) 44.2 % 05/12/24 13:50 Lymph % (Auto) 45.2 % 05/12/24 13:50 Dickinson % (Auto) 6.5 % 05/12/24 13:50 Eos % (Auto) 1.0 % 05/12/24 13:50 Baso % (Auto) 0.8 % 05/12/24 13:50 Neut # (Auto) 5.19 10^3/uL (1.8-7.7) 05/12/24 13:50 Lymph # (Auto) 5.3 10^3/uL (0.8-4.8) H 05/12/24 13:50 Dickinson # (Auto) 0.8 10^3/uL (0.2-0.9) 05/12/24 13:50 Eos # (Auto) 0.1 10^3/uL (0.0-0.8) 05/12/24 13:50 Baso # (Auto) 0.1 10^3/uL (0.0-0.1) 05/12/24 13:50 Nucleated RBC % (auto) 0 % 05/12/24 13:50 Nucleated RBCs # 0.0 /100WBC 05/12/24 13:50 Specimen Type Arterial 05/12/24 14:46 Sample Site Radial, right 05/12/24 14:46 ABG pH 7.38 (7.35-7.45) 05/12/24 14:46 ABG pCO2 36.8 mmHg (35-45) 05/12/24 14:46 ABG pO2 99.0 mmHg (80.0-100.0) 05/12/24 14:46 ABG PO2/FiO2 Ratio 471 05/12/24 14:46 ABG HCO3 21.7 mmol/L (22-26) L 05/12/24 14:46 ABG O2 Saturation 98.4 05/12/24 14:46 ABG Base Excess -2.9 mmol/L (-2.0-2.0) L 05/12/24 14:46 Zac Test Pos 05/12/24 14:46 A-a O2 Gradient 0.6 mmHg (5-10) L 05/12/24 14:46 Hematocrit 46.2 % (37-47) 05/12/24 14:46 Hgb O2 Saturation 96.4 % (95-100) 05/12/24 14:46 Carboxyhemoglobin 1.1 %THgb (0.4-20.1) 05/12/24 14:46 Methemoglobin 0.9 % (0.4-1.5) 05/12/24 14:46 Total Hemoglobin 15.1 g/dL (12-16) 05/12/24 14:46 Sodium 131.0 mmol/L (131-143) 05/12/24 14:46 Potassium 4.3 mmol/L (3.5-5.0) 05/12/24 14:46 Glucose 622.0 mg/dL (70-115) H 05/12/24 14:46 Ionized Calcium 1.2 mmol/L (1.1-1.4) 05/12/24 14:46 O2 Delivery Device Room air 05/12/24 14:46 FiO2 21.0 % 05/12/24 14:46 Nursery Attendant ID [place] 05/12/24 14:46 Sodium 127 mmol/L (136-145) L 05/12/24 13:50 Potassium 3.7 mmol/L (3.5-5.1) 05/12/24 13:50 Chloride 88 mmol/L (98-107) L 05/12/24 13:50 Carbon Dioxide 17 mmol/L (22-29) L 05/12/24 13:50 Anion Gap 25.7 (5-19) H 05/12/24 13:50 BUN 7 mg/dL (6-20) 05/12/24 13:50 Creatinine 1.0 mg/dL (0.5-0.9) H 05/12/24 13:50 GFR Calculation 56.9 mL/min (90-130) L 05/12/24 13:50 Glucose 739 mg/dL (65-115) H* 05/12/24 13:50 POC Glucose 366 mg/dL (70-110) H 05/12/24 17:40 Calculated Osmolality 298 mOsm/kg (285-295) H 05/12/24 13:50 Lactic Acid 4.5 mmol/L (0.5-2.2) H* 05/12/24 16:08 Calcium 8.8 mg/dL (8.5-10.5) 05/12/24 13:50 Magnesium 1.9 mg/dL (1.7-2.3) 05/12/24 13:50 Total Bilirubin 0.5 mg/dL (0.15-1.2) 05/12/24 13:50 AST 20 U/L (0-32) 05/12/24 13:50 ALT 19 U/L (0-33) 05/12/24 13:50 Alkaline Phosphatase 154 U/L (35-105) H 05/12/24 13:50 NT-Pro-B Natriuret Pep 110 pg/mL (0-125) 05/12/24 13:50 Total Protein 6.7 g/dL (6.6-8.7) 05/12/24 13:50 Albumin 4.0 g/dL (3.5-5.2) 05/12/24 13:50 Globulin 2.7 g/dL (1.3-4.6) 05/12/24 13:50 Lipase 55 U/L (13-60) 05/12/24 13:50 Procalcitonin 0.07 ng/mL (0-0.5) 05/12/24 13:50 Urine Color Yellow (Yellow) 05/12/24 15:00 Urine Appearance Clear (CLEAR) 05/12/24 15:00 Urine pH 5.5 (5-7) 05/12/24 15:00 Ur Specific [place] 1.031 (1.005-1.030) H 05/12/24 15:00 Urine Protein Negative (Negative) 05/12/24 15:00 Urine Glucose (UA) 3+ (Normal) H 05/12/24 15:00 Urine Ketones Negative (Negative) 05/12/24 15:00 Urine Blood Negative (Negative) 05/12/24 15:00 Urine Nitrate Negative (Negative) 05/12/24 15:00 Urine Bilirubin Negative (Negative) 05/12/24 15:00 Urine Urobilinogen 1.0 mg/dL (Negative) 05/12/24 15:00 Ur Leukocyte Esterase Negative (Negative) 05/12/24 15:00 Urine RBC 0-2 /hpf (0-2) 05/12/24 15:00 Urine WBC 0-5 /hpf (0-5) 05/12/24 15:00 Ur Squamous Epith Cells 0-5 /hpf (0-5) 05/12/24 15:00 Amorphous Sediment Not Reportable 05/12/24 15:00 Urine Bacteria None seen /hpf (NONE) 05/12/24 15:00 Hyaline Casts 4.11 /lpf 05/12/24 15:00 Urine Opiates Screen Negative ng/mL (Negative) 05/12/24 15:00 Ur Barbiturates Screen Negative ng/mL (Negative) 05/12/24 15:00 Ur Phencyclidine Scrn Negative ng/mL (Negative) 05/12/24 15:00 Ur Amphetamines Screen Positive ng/mL (Negative) H 05/12/24 15:00 U Benzodiazepines Scrn Negative ng/mL (Negative) 05/12/24 15:00 Urine Cocaine Screen Negative ng/mL (Negative) 05/12/24 15:00 U Marijuana (THC) Screen Negative ng/mL (Negative) 05/12/24 15:00 Serum Ketones Negative (Negative) 05/12/24 13:50 All radiology interpretation(s) finalized by discharge Discharge Plan Discharge Patient Disposition: Admitted As Inpatient Clinical Impression: Altered mental status, Seizure, Hyperglycemia due to type 2 diabetes mellitus Condition: Stable Coding Level of Care Code ED Chemistry Teacher for Venancio Eisenberg Face to Face: Restrn/Seclusion Events leading up to initiation: Combative/Striking out at staff or others
--- NOTE | 2024-05-12 14:40 | PC.NURSE ---
pt attempting to pull out IV lines, get out of bed. this nurse and ER charge attempted verbal de-escalation and education, pt not receptive.
[2024-05-12 14:57] LABS: ABG PCO2 36.8 mmHg (35-45); ABG PH Result 7.38 (7.35-7.45); Alveolar-Arterial Oxygen Gradi 0.6 mmHg (5-10); Arterial Blood Gas Hematocrit 46.2 % (37-47); Base Excess ABG -2.9 mmol/L (-2.0-2.0); Blood Gas Allen Test Pos; Blood Gas Operator Identificat WALCI; Blood Gas Sample Site Radial, right; Blood Gas Sample Type Arterial; Carboxyhemoglobin 1.1 %THgb (0.4-20.1); HCO3 ABG 21.7 mmol/L (22-26); HGB O2 Sat 96.4 % (95-100); Ionized Calcium Level - ABG 1.2 mmol/L (1.1-1.4); Methemoglobin 0.9 % (0.4-1.5); Oxygen Device ROOM AIR; Oxygen Saturation ABG 98.4; PO2 FiO2 Ratio Arterial Blood 471; Potassium Level - ABG 4.3 mmol/L (3.5-5.0); Total Hemoglobin 15.1 g/dL (12-16)
[2024-05-12 15:06] LABS: Basophils # 0.1 10^3/uL (0.0-0.1); Basophils % 0.8 %; Eosinophils # 0.1 10^3/uL (0.0-0.8); Hematocrit 47.8 % (36-47); Lymphocytes # 5.3 10^3/uL (0.8-4.8); Lymphocytes % 45.2 %; Mean Corpuscular HGB Conc 31.6 g/dL (30-55); Mean Corpuscular Hemoglobin 25.9 pg (27-33); Mean Corpuscular Volume 82.1 fl (85-98); Mean Platelet Volume 11.3 fL (7.4-10.4); Monocytes # 0.8 10^3/uL (0.2-0.9); Monocytes % 6.5 %; Neutrophils # 5.19 10^3/uL (1.8-7.7); Neutrophils % 44.2 %; Nucleated Red Blood Cells % 0 %; Platelet Count 270 10^3/cmm (157-399); Red Blood Count 5.82 10^6/uL (3.85-5.65); Red Cell Distribution Width 12.5 % (12.1-15.1); White Blood Count 11.76 10^3/uL (3.29-11.43)
[2024-05-12 15:10] LABS: Ketone (Acetest) Serum Negative (Negative)
[2024-05-12] MEDS: ondansetron 2 mg/ML SDV 2 mL 4 MG IVP (15:19)
[2024-05-12] MEDS: insulin regular-human 100 units/1 mL 10 UNIT IVP (15:20)
[2024-05-12] MEDS: morphine 4 mg/mL SDV 1 mL IVP (15:20)
[2024-05-12] MEDS: LORazepam 2 mg/mL INJ 1 mL (15:21)
--- NOTE | 2024-05-12 15:21 | PC.NURSE ---
bed rail padding applied, suction set up at bedside, pt on monitoring engineer. EMS states pt had multiple seizures lasting over few min
[2024-05-12 15:26] LABS: Bilirubin Urine Negative (Negative); Blood Urine Negative (Negative); Glucose Urine UA 3+ (Normal); Ketones Urine Negative (Negative); Leukocyte Esterase Urine Negative (Negative); Nitrate Urine Negative (Negative); Protein Urine Negative (Negative); Urine Appearance Clear (CLEAR); Urine Color Yellow (Yellow); pH Urine 5.5 (5-7)
[2024-05-12 15:26] LABS: Alanine Aminotransferase 19 U/L (0-33); Alkaline Phosphatase 154 U/L (35-105); Aspartate Amino Transferase 20 U/L (0-32); Blood Urea Nitrogen 7 mg/dL (6-20); Calcium 8.8 mg/dL (8.5-10.5); Carbon Dioxide 17 mmol/L (22-29); Chloride 88 mmol/L (98-107); Globulin 2.7 g/dL (1.3-4.6); Glomerular Filtration Rate 56.9 mL/min (90-130); Magnesium 1.9 mg/dL (1.7-2.3); NT Pro B Type Natriuretic Pept 110 pg/mL (0-125); Osmolality Calculated 298 mOsm/kg (285-295); Sodium 127 mmol/L (136-145); Total Bilirubin 0.5 mg/dL (0.15-1.2); Total Protein 6.7 g/dL (6.6-8.7)
--- NOTE | 2024-05-12 15:26 | PC.NURSE ---
bilateral soft wrist/ankle restraints applied @1500. this nurse, x2 ER staff, ER charge in room. Dr. Medley at bedside @1770
[2024-05-12 15:31] LABS: Add Urine Microscopic? YES; Bacteria Urine None Seen /hpf; Hyaline Casts Urine 4.11 /lpf; RBC Urine 0-2 /hpf (0-2); Squamous Epithelial Cell Urine 0-5 /hpf (0-5); WBC Urine 0-5 /hpf (0-5)
[2024-05-12 15:33] LABS: Lipase 55 U/L (13-60)
[2024-05-12 15:33] LABS: Amphetamines Screen Urine Positive (Negative); Barbiturates Screen Urine Negative (Negative); Benzodiazepines Screen Urine Negative (Negative); Cocaine Screen Urine Negative (Negative); Opiate Screen Urine Negative (Negative); PCP Screen Urine Negative (Negative); THC Screen Urine Negative (Negative)
[2024-05-12 15:36] LABS: Specific Gravity, Urine 1.031 (1.005-1.030)
[2024-05-12 15:41] LABS: Anion Gap 25.7 (5-19); Creatinine Clr Calc Pharmacy 64.4407; Potassium 3.7 mmol/L (3.5-5.1)
[2024-05-12 15:42] LABS: Glucose 739 mg/dL (65-115)
[2024-05-12 16:16] LABS: Procalcitonin 0.07 ng/mL (0-0.5)
[2024-05-12] MEDS: sodium chloride 0.9% 1,000 ML 999 ML IV (16:26)
--- NOTE | 2024-05-12 16:26 | CTR_ITS ---
PROCEDURE INFORMATION: Exam: CT Head Without Contrast Exam date and time: 05/12/2024 4:46 PM Age: 59 years old Clinical indication: Altered mental status/memory loss; Additional info: PT is a diabetic and had a glass of chocolate milk around 9 this am. EMS states PT was awake when they arrived but unresponsive. EMS states PT had 2 seizures, PT has HX of seizures when she has blood sugar issues. TECHNIQUE: Imaging protocol: Computed tomography of the head without contrast. Radiation optimization: All CT scans at this facility use at least one of these dose optimization techniques: automated exposure control; mA and/or kV adjustment per patient size (includes targeted exams where dose is matched to clinical indication); or iterative reconstruction. COMPARISON: No relevant prior studies available. RADIATION DOSE METRICS: Total DLP (mGy-cm): 1046.27 FINDINGS: Brain: There is mild diffuse cerebral atrophy present, consistent with this patient's age. There is mild diffuse heterogeneity of the white matter attenuation, consistent with chronic white matter ischemic changes. No evidence for large acute ischemic infarction. Please note acute ischemia can be occult by head CT. No evidence for acute intracranial hemorrhage. Cerebral ventricles: No ventriculomegaly. Paranasal sinuses: Visualized sinuses are unremarkable. No fluid levels. Mastoid air cells: Visualized mastoid air cells are well aerated. Bones: Unremarkable. No acute fracture. Soft tissues: Unremarkable. CT/CT head wo con* [id number] IMPRESSION: There mild are senescent changes of the brain as described above. No evidence for large acute ischemic infarction or acute intracranial injury.
[2024-05-12 16:29] LABS: Glucose Point of Care 485 mg/dL (70-110)
[2024-05-12 16:33] LABS: Lactic Sepsis W/Reflex 4.5 mmol/L (0.5-2.2)
[2024-05-12 17:42] LABS: Glucose Point of Care 366 mg/dL (70-110)
[2024-05-12 17:57] LABS: Reflex Lactate Order REFLEX LACTIC ORDERD
--- NOTE | 2024-05-12 18:17 | P.HP_ITS ---
Providers/Chief Complaint 2 Primary Care Provider: Miguel A Sharma Chief Complaint: UNRESPONSIVE History of Present Illness Kiah Hawkins is a 59 year old female with past medical history of type 2 diabetes mellitus, transaminitis, history of seizures secondary to hyperglycemia was brought in by EMS for unresponsiveness. Family witnessed a seizure so did the EMS. EMS recorded her blood sugar to be very high. As per the EMS the family informed that she drank a large milkshake following which the family tried to arouse her but she was not arousable. She was given 2.5 mg of Versed IV en route by EMS for seizure activity. Family not available at bedside for providing history. 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 On arrival in the ER she was found to be combative and agitated, was likely postictal, was given IV morphine and Ativan. During my assessment she is drowsy but responsive to verbal stimuli and answering some questions appropriately. In ER she was again found to have blood sugar very high 739, received IV regular insulin 10 units. Current blood sugars 366. She has an anion gap of 25 pH 7.38 Lactic acid 4.5 U tox positive for amphetamine Review of Systems 2 General: Reports: ROS unobtainable due to mental status Medications/Allergies Home Medications Medication Instructions Recorded Confirmed Last Taken Type aspirin 81 mg tablet,delayed 81 mg PO DAILY 90 days #90 tabs 10/20/22 03/07/24 09/27/23 Rx release potassium chloride 10 mg PO DIRECTED PRN Cramps 10/20/22 03/07/24 10/04/23 History glucagon 1 mg solution for 1 mg SUBCUT Q20M PRN hypoglycemia 11/10/22 03/07/24 10/04/23 Rx injection (GlucaGen HypoKit) #1 ea furosemide 20 mg tablet (Lasix) 20 mg PO DAILY PRN edema 15 days 01/11/23 03/07/24 10/04/23 Rx #15 tabs metformin 500 mg tablet 250 mg (1/2 x 500 mg) PO BID 90 05/20/23 03/07/24 Unknown Rx days #90 tabs benzonatate 100 mg capsule 100 mg PO TID PRN cough #20 caps 07/05/23 03/07/24 10/04/23 Rx ondansetron 4 mg disintegrating 4 mg PO DAILY 10/11/23 03/07/24 Unknown History tablet methocarbamol 500 mg tablet 500 mg PO TID PRN muscle spasms 10/15/23 03/07/24 Unknown Rx and pain postop 14 days #42 tabs oxycodone 5 mg tablet 5 mg PO Q4H PRN pain postop 7 days 10/15/23 03/07/24 Unknown Rx #42 tabs celecoxib 200 mg capsule (Celebrex) 200 mg PO BID shoulder pain #60 10/24/23 03/07/24 Unknown Rx caps sitagliptin phosphate 25 mg tablet See Rx Instructions .Route 10/31/23 03/07/24 Unknown Rx (Januvia) .COMPLEX #30 tabs blood sugar diagnostic #100 ea 11/15/23 03/07/24 Unknown Rx tramadol 50 mg tablet 50 mg PO Q6H PRN pain 5 days #20 12/20/23 03/07/24 Unknown Rx tabs insulin glargine 100 unit/mL (3 10 unit (0.1 mL) SUBCUT QAM #15 mL 02/24/24 03/07/24 Unknown Rx mL) subcutaneous pen (Lantus Solostar U-100 Insulin) tramadol 50 mg tablet 50 mg PO Q6H PRN pain #90 tabs 02/24/24 03/07/24 Unknown Rx prednisone 20 mg tablet 20 mg PO DAILY #15 tabs 03/07/24 03/07/24 Unknown Rx Allergies Allergy/AdvReac Type Severity Reaction Status Date / Time acetaminophen [From Tylenol] Allergy Severe hives Verified 03/07/24 15:11 levofloxacin [From Levaquin] Allergy ALGY-Rash Verified 03/07/24 15:11 Sulfa (Sulfonamide Allergy ALGY-Hives Verified 03/07/24 15:11 Antibiotics) PFSH Acute 2 PFSH: Medical History Type 2 diabetes mellitus Screening for HIV (human immunodeficiency virus) Transaminitis Post-menopausal bleeding Gallbladder calculus with acute cholecystitis History of gallbladder disease Family History Mother CAD (coronary artery disease) Cancer Hypertension Lung disease Father Hyperlipidemia Sister Ovarian cancer Brother Hyperlipidemia Denies family history of Diabetes Chronic kidney disease (CKD) Stroke Social History Smoking and tobacco/nicotine status: current every day tobacco/nicotine user (Chews tabacco) smokeless tobacco Smokeless tobacco user: chewing tobacco Second hand smoke exposure: No Alcohol intake: former Year of sobriety/quit date alcohol: 2014 Substance/Drug Use: current Substance/Drug use frequency: Special occassions/opportunity only Adopted: No Household members: spouse Housing: Manufactured/Mobile home Marital status: service: No Current occupational status: unemployed Vitals/I&O/Wt Last Vital Signs Temp 98.5 F 05/12/24 14:26 Pulse 88 05/12/24 18:00 Resp 15 05/12/24 18:00 BP 147/91 05/12/24 18:00 Pulse Ox 98 05/12/24 18:00 O2 Del Method Room Air 05/12/24 15:12 Weight last 48 hrs Weight 84.368 kg Physical Exam 2 Urinary Catheter Management: Amin: Cath Placed During This Visit: yes Reason for Continuing Indwelling Catheter: Accurate Measurement of Urinary Output in Critically Ill Patients Urinary Catheter Date of Insertion: 05/12/24 Urinary Catheter Time of Insertion: 15:34 Data 05/12/24 13:50 05/12/24 13:50 A&P Assessment and plan (1) Seizure: (2) Hyperglycemia due to type 2 diabetes mellitus: Qualifiers: Diabetes mellitus half-way insulin use: with half-way use Qualified Code(s): E11.65 - Type 2 diabetes mellitus with hyperglycemia; Z79.4 - intermediate (current) use of insulin (3) Altered mental status: Qualifiers: Altered mental status type: somnolence Qualified Code(s): R40.0 - Somnolence Plan Kiah Hawkins is a 59 year old female with past medical history of type 2 diabetes mellitus, transaminitis, history of seizures secondary to hyperglycemia was brought in by EMS for unresponsiveness. Family witnessed a seizure so did the EMS. #Seizure episode- likely secondary to hyperglycemia at home As per the PCP note her current HbA1c is 9.1 She states she has been taking medications regularly As per the family she drank a large milkshake this morning since she was feeling dizzy following which the event happened. On arrival in ER blood sugar was 739. Received 10 units of regular insulin in ER, current blood sugar is 366 pH is 7.28, sodium 127, anion gap 27, lactic acid 4.5 abnormalities due to hyperglycemia, will monitor. Will start on home dose of insulin will glargine Will hold NETWORK COORDINATOR metformin, Januvia. Will do correction scale insulin every 2 hours POC glucose check every 2 hours Continue cardiac telemetry monitoring N.p.o. for now Seizure precautions Fall precautions #Leukocytosis-WBCs 11.76 likely is stress-induced Will hold off on antibiotics for now #UTox positive for amphetamine. Continue to monitor for nausea and vomiting. DVT prophylaxis with subcutaneous heparin GI prophylaxis with IV Pepcid 20 mg twice daily Family not at bedside and patient is drowsy, she will be full code for now Attestations 2 Medical Necessity Statement*: She needs continued hospitalization crossing 2 midnights for management of hyperglycemia and seizures with cardiac monitoring, insulin therapy and monitoring of labs. Time Spent in Patient Care: 45 minutes Coding Level of Care Code Acute Code for [facility] Fwd Diagnoses Seizure R56.9 Hyperglycemia due to type 2 diabetes mellitus E11.65; Z79.4 Diabetes mellitus half-way insulin use: with buttermaker use Altered mental status R40.0 Altered mental status type: somnolence Time Spent (min) 45
--- NOTE | 2024-05-12 18:23 | PC.NURSE ---
removed L ankle soft restraint, Dr. Medley notified. pt cap refill <3 seconds, no discoloration/wounds noted to L ankle.
--- NOTE | 2024-05-12 18:33 | PC.NURSE ---
removed R ankle soft restraint, Dr. Medley notified. pt cap refill <3 seconds, no discoloration/wounds noted to R ankle
--- NOTE | 2024-05-12 18:39 | PC.NURSE ---
removed bilateral wrist soft restraint, Dr. Medley notified. pt cap refill <3 seconds, no discoloration/wounds noted to bilateral wrists. pt respirations even and unlabored. family and bedside, updated on situation
[2024-05-12 19:24] LABS: Glucose Point of Care 308 mg/dL (70-110)
[2024-05-12 19:28] LABS: Lactic Acid level (Lactate) 1.6 mmol/L (0.5-2.2)
[2024-05-12] MEDS: famotidine 20 mg/2 mL INJ IVP (19:47)
[2024-05-12] MEDS: heparin 5,000 unit/mL INJ 1 mL 5000 UNIT SUBCUT (19:47)
[2024-05-12] MEDS: sodium chloride 0.9% 1,000 ML 75 ML IV (20:41)
[2024-05-12] MEDS: insulin lispro 100 unit/1 mL SUBCUT ×2 (20:41→23:01)
[2024-05-12] MEDS: insulin glargine 100 units/1 mL 20 UNIT SUBCUT (20:42)
[2024-05-12 21:13] LABS: Glucose Point of Care 254 mg/dL (70-110)
[2024-05-12 23:04] LABS: Glucose Point of Care 190 mg/dL (70-110)
[2024-05-13 01:01] LABS: Glucose Point of Care 80 mg/dL (70-110)
[2024-05-13 02:31] LABS: Glucose Point of Care 79 mg/dL (70-110)
[2024-05-13 03:30] LABS: Basophils % 0.4 %; Eosinophils # 0.1 10^3/uL (0.0-0.8); Eosinophils % 0.9 %; Hematocrit 39.9 % (36-47); Lymphocytes # 2.5 10^3/uL (0.8-4.8); Lymphocytes % 27.9 %; Mean Corpuscular HGB Conc 33.3 g/dL (30-55); Mean Corpuscular Hemoglobin 26.1 pg (27-33); Mean Corpuscular Volume 78.2 fl (85-98); Mean Platelet Volume 10.2 fL (7.4-10.4); Monocytes # 0.7 10^3/uL (0.2-0.9); Monocytes % 7.2 %; Neutrophils # 5.66 10^3/uL (1.8-7.7); Neutrophils % 63.2 %; Nucleated Red Blood Cells % 0 %; Platelet Count 199 10^3/cmm (157-399); Red Cell Distribution Width 12.5 % (12.1-15.1); White Blood Count 8.97 10^3/uL (3.29-11.43)
[2024-05-13 03:34] VITALS: BP 103/70; PULSE 88; RESP 17; TEMP 37; O2SAT 95
[2024-05-13 03:52] LABS: Lactic Sepsis W/Reflex 1.1 mmol/L (0.5-2.2)
[2024-05-13 03:53] LABS: Alanine Aminotransferase 23 U/L (0-33); Albumin Level 3.3 g/dL (3.5-5.2); Alkaline Phosphatase 107 U/L (35-105); Anion Gap 9.1 (5-19); Aspartate Amino Transferase 29 U/L (0-32); Blood Urea Nitrogen 4 mg/dL (6-20); Calcium 8.4 mg/dL (8.5-10.5); Carbon Dioxide 26 mmol/L (22-29); Chloride 107 mmol/L (98-107); Creatinine Clr Calc Pharmacy 90.8506; Glomerular Filtration Rate 85.9 mL/min (90-130); Glucose 93 mg/dL (65-115); Magnesium 1.8 mg/dL (1.7-2.3); Osmolality Calculated 285 mOsm/kg (285-295); Potassium 3.1 mmol/L (3.5-5.1); Sodium 139 mmol/L (136-145); Total Bilirubin 0.5 mg/dL (0.15-1.2); Total Protein 5.3 g/dL (6.6-8.7)
[2024-05-13 04:07] LABS: Glucose Point of Care 109 mg/dL (70-110)
[2024-05-13 06:08] VITALS: PULSE 80
[2024-05-13] MEDS: famotidine 20 mg/2 mL INJ IVP (06:11)
[2024-05-13] MEDS: heparin 5,000 unit/mL INJ 1 mL 5000 UNIT SUBCUT (06:11)
[2024-05-13 06:14] LABS: Glucose Point of Care 137 mg/dL (70-110)
[2024-05-13 07:55] LABS: Glucose Point of Care 197 mg/dL (70-110)
[2024-05-13 07:58] VITALS: BP 112/69; PULSE 84; RESP 16; TEMP 36.8; O2SAT 95
[2024-05-13] MEDS: potassium chloride ER 20 mEq Tablet 40 MEQ PO (09:14)
[2024-05-13] MEDS: insulin glargine 100 units/1 mL 20 UNIT SUBCUT (09:14)
[2024-05-13] MEDS: insulin lispro 100 unit/1 mL SUBCUT ×3 (09:15→12:05)
[2024-05-13 10:01] LABS: Glucose Point of Care 202 mg/dL (70-110)
[2024-05-13 11:33] VITALS: BP 120/83; PULSE 86; RESP 18; O2SAT 97
--- NOTE | 2024-05-13 11:38 | PM.DCS ---
Discharge Providers Date of Admission: 05/12/24 19:17 Date of Discharge: May 13, 2024 Attending Provider at Admission: Bere Tony MD Attending Provider at Discharge: Bere Tony MD Primary Care Provider: Miguel A Sharma Diagnoses at Discharge Discharge Diagnosis (1) Seizure: Status: Acute (2) Hyperglycemia due to type 2 diabetes mellitus: Status: Acute Qualifiers: Diabetes mellitus assisted insulin use: with assisted use Qualified Code(s): E11.65 - Type 2 diabetes mellitus with hyperglycemia; Z79.4 - [facility] (current) use of insulin (3) Altered mental status: Status: Acute Qualifiers: Altered mental status type: somnolence Qualified Code(s): R40.0 - Somnolence Reason for Visit Reason for Visit: UNRESPONSIVE Physical Exam Urinary Catheter Management: Amin: Cath Placed During This Visit: yes, but has since been removed by the nurse Reason for Continuing Indwelling Catheter: Decision to DC Catheter Urinary Catheter Date of Insertion: 05/12/24 Urinary Catheter Time of Insertion: 15:34 Date Urinary Catheter Removed: 05/13/24 Time Urinary Catheter Discontinued: 08:05 Discharge Data Studies Completed and Pending Completed Studies During Hospitalization Category Date Time Status CT head wo con* [id number] Stat Cat Scan 05/12/24 16:26 Completed XR chest 1V portable [id number] Stat Exams 05/12/24 14:30 Completed Pending at discharge Category Date Time Status Comprehensive Metabolic Panel AM LABS Lab 05/14/24 04:00 Ordered Comprehensive Metabolic Panel AM LABS Lab 05/15/24 04:00 Ordered Magnesium AM LABS Lab 05/14/24 04:00 Ordered Magnesium AM LABS Lab 05/15/24 04:00 Ordered Radiology Impressions Chest X-Ray 05/12/24 14:30 IMPRESSION: No acute findings. Head CT 05/12/24 16:26 IMPRESSION: There mild are senescent changes of the brain as described above. No evidence for large acute ischemic infarction or acute intracranial injury. Laboratory Results WBC 8.97 10^3/uL (3.29-11.43) 05/13/24 03:16 RBC 5.10 10^6/uL (3.85-5.65) 05/13/24 03:16 Hgb 13.30 g/dL (11.27-16.99) 05/13/24 03:16 Hct 39.9 % (36-47) 05/13/24 03:16 MCV 78.2 fl (85-98) L 05/13/24 03:16 MCH 26.1 pg (27-33) L 05/13/24 03:16 MCHC 33.3 g/dL (30-55) D 05/13/24 03:16 RDW 12.5 % (12.1-15.1) 05/13/24 03:16 Plt Count 199 10^3/cmm (157-399) 05/13/24 03:16 MPV 10.2 fL (7.4-10.4) 05/13/24 03:16 Neut % (Auto) 63.2 % 05/13/24 03:16 Lymph % (Auto) 27.9 % 05/13/24 03:16 [place] % (Auto) 7.2 % 05/13/24 03:16 Eos % (Auto) 0.9 % 05/13/24 03:16 Baso % (Auto) 0.4 % 05/13/24 03:16 Neut # (Auto) 5.66 10^3/uL (1.8-7.7) 05/13/24 03:16 Lymph # (Auto) 2.5 10^3/uL (0.8-4.8) 05/13/24 03:16 [place] # (Auto) 0.7 10^3/uL (0.2-0.9) 05/13/24 03:16 Eos # (Auto) 0.1 10^3/uL (0.0-0.8) 05/13/24 03:16 Baso # (Auto) 0.0 10^3/uL (0.0-0.1) 05/13/24 03:16 Nucleated RBC % (auto) 0 % 05/13/24 03:16 Nucleated RBCs # 0.0 /100WBC 05/13/24 03:16 Specimen Type Arterial 05/12/24 14:46 Sample Site Radial, right 05/12/24 14:46 ABG pH 7.38 (7.35-7.45) 05/12/24 14:46 ABG pCO2 36.8 mmHg (35-45) 05/12/24 14:46 ABG pO2 99.0 mmHg (80.0-100.0) 05/12/24 14:46 ABG PO2/FiO2 Ratio 471 05/12/24 14:46 ABG HCO3 21.7 mmol/L (22-26) L 05/12/24 14:46 ABG O2 Saturation 98.4 05/12/24 14:46 ABG Base Excess -2.9 mmol/L (-2.0-2.0) L 05/12/24 14:46 Zac Test Pos 05/12/24 14:46 A-a O2 Gradient 0.6 mmHg (5-10) L 05/12/24 14:46 Hematocrit 46.2 % (37-47) 05/12/24 14:46 Hgb O2 Saturation 96.4 % (95-100) 05/12/24 14:46 Carboxyhemoglobin 1.1 %THgb (0.4-20.1) 05/12/24 14:46 Methemoglobin 0.9 % (0.4-1.5) 05/12/24 14:46 Total Hemoglobin 15.1 g/dL (12-16) 05/12/24 14:46 Sodium 131.0 mmol/L (131-143) 05/12/24 14:46 Potassium 4.3 mmol/L (3.5-5.0) 05/12/24 14:46 Glucose 622.0 mg/dL (70-115) H 05/12/24 14:46 Ionized Calcium 1.2 mmol/L (1.1-1.4) 05/12/24 14:46 O2 Delivery Device Room air 05/12/24 14:46 FiO2 21.0 % 05/12/24 14:46 Import/Export Administrator ID Mahamed 05/12/24 14:46 Sodium 139 mmol/L (136-145) 05/13/24 03:16 Potassium 3.1 mmol/L (3.5-5.1) L 05/13/24 03:16 Chloride 107 mmol/L (98-107) 05/13/24 03:16 Carbon Dioxide 26 mmol/L (22-29) 05/13/24 03:16 Anion Gap 9.1 (5-19) 05/13/24 03:16 BUN 4 mg/dL (6-20) L 05/13/24 03:16 Creatinine 0.7 mg/dL (0.5-0.9) 05/13/24 03:16 GFR Calculation 85.9 mL/min (90-130) L 05/13/24 03:16 Glucose 93 mg/dL (65-115) 05/13/24 03:16 POC Glucose 202 mg/dL (70-110) H 05/13/24 09:53 Calculated Osmolality 285 mOsm/kg (285-295) 05/13/24 03:16 Lactic Acid 1.1 mmol/L (0.5-2.2) 05/13/24 03:16 Lactic Acid (Sepsis) 1.6 mmol/L (0.5-2.2) 05/12/24 19:03 Calcium 8.4 mg/dL (8.5-10.5) L 05/13/24 03:16 Magnesium 1.8 mg/dL (1.7-2.3) 05/13/24 03:16 Total Bilirubin 0.5 mg/dL (0.15-1.2) 05/13/24 03:16 AST 29 U/L (0-32) 05/13/24 03:16 ALT 23 U/L (0-33) 05/13/24 03:16 Alkaline Phosphatase 107 U/L (35-105) H 05/13/24 03:16 NT-Pro-B Natriuret Pep 110 pg/mL (0-125) 05/12/24 13:50 Total Protein 5.3 g/dL (6.6-8.7) L D 05/13/24 03:16 Albumin 3.3 g/dL (3.5-5.2) L 05/13/24 03:16 Globulin 2.0 g/dL (1.3-4.6) 05/13/24 03:16 Lipase 55 U/L (13-60) 05/12/24 13:50 Procalcitonin 0.07 ng/mL (0-0.5) 05/12/24 13:50 Urine Color Yellow (Yellow) 05/12/24 15:00 Urine Appearance Clear (CLEAR) 05/12/24 15:00 Urine pH 5.5 (5-7) 05/12/24 15:00 Ur Specific [place] 1.031 (1.005-1.030) H 05/12/24 15:00 Urine Protein Negative (Negative) 05/12/24 15:00 Urine Glucose (UA) 3+ (Normal) H 05/12/24 15:00 Urine Ketones Negative (Negative) 05/12/24 15:00 Urine Blood Negative (Negative) 05/12/24 15:00 Urine Nitrate Negative (Negative) 05/12/24 15:00 Urine Bilirubin Negative (Negative) 05/12/24 15:00 Urine Urobilinogen 1.0 mg/dL (Negative) 05/12/24 15:00 Ur Leukocyte Esterase Negative (Negative) 05/12/24 15:00 Urine RBC 0-2 /hpf (0-2) 05/12/24 15:00 Urine WBC 0-5 /hpf (0-5) 05/12/24 15:00 Ur Squamous Epith Cells 0-5 /hpf (0-5) 05/12/24 15:00 Amorphous Sediment Not Reportable 05/12/24 15:00 Urine Bacteria None seen /hpf (NONE) 05/12/24 15:00 Hyaline Casts 4.11 /lpf 05/12/24 15:00 Urine Opiates Screen Negative ng/mL (Negative) 05/12/24 15:00 Ur Barbiturates Screen Negative ng/mL (Negative) 05/12/24 15:00 Ur Phencyclidine Scrn Negative ng/mL (Negative) 05/12/24 15:00 Ur Amphetamines Screen Positive ng/mL (Negative) H 05/12/24 15:00 U Benzodiazepines Scrn Negative ng/mL (Negative) 05/12/24 15:00 Urine Cocaine Screen Negative ng/mL (Negative) 05/12/24 15:00 U Marijuana (THC) Screen Negative ng/mL (Negative) 05/12/24 15:00 Serum Ketones Negative (Negative) 05/12/24 13:50 Vitals Last Vital Signs Temp 98.2 F 05/13/24 07:58 Pulse 86 05/13/24 11:33 Resp 18 05/13/24 11:33 BP 120/83 05/13/24 11:33 Pulse Ox 97 05/13/24 11:33 O2 Del Method Room Air 05/13/24 11:33 Discharge Plan Discharge Patient Disposition: Home Condition: Stable Prescriptions: No Action aspirin 81 mg tablet,delayed release (DR/EC) 81 mg PO DAILY 90 Days Qty: 90 0RF GlucaGen HypoKit 1 mg recon soln 1 mg SUBCUT Q20M PRN (Reason: hypoglycemia) Qty: 1 0RF Rx Instructions: until target blood sugar attained Januvia 25 mg tablet See Rx Instructions .ROUTE .COMPLEX Qty: 30 5RF Dose Instruction: TAKE 1 TABLET BY MOUTH DAILY FOR 30 DAYS Rx Instructions: TAKE 1 TABLET BY MOUTH DAILY FOR 30 DAYS (DME) blood sugar diagnostic Strip See Rx Instructions .Route Qty: 100 5RF Rx Instructions: use to check blood sugar once daily: One Touch Verio Strips tramadol 50 mg tablet 50 mg PO Q6H PRN (Reason: pain) 5 Days Qty: 20 0RF insulin glargine [Lantus Solostar U-100 Insulin] 100 unit/mL (3 mL) insulin pen 10 unit SUBCUT QAM Qty: 15 6RF Referrals: Miguel A Sharma FNP [Primary Care Provider] - Patient Instructions: Opioid Safety Coding Level of Care Code Acute Code for Chg Fwd Diagnoses Seizure R56.9 Hyperglycemia due to type 2 diabetes mellitus E11.65; Z79.4 Diabetes mellitus keno terminal operator insulin use: with keno terminal operator use Altered mental status R40.0 Altered mental status type: somnolence
--- NOTE | 2024-05-13 11:39 | PM.DCS ---
Discharge Providers Date of Admission: 05/12/24 19:17 Date of Discharge: May 13, 2024 Attending Provider at Admission: Bere Tony MD Attending Provider at Discharge: Bere Tony MD Primary Care Provider: Miguel A Sharma Diagnoses at Discharge Discharge Diagnosis (1) Seizure: Status: Acute (2) Hyperglycemia due to type 2 diabetes mellitus: Status: Acute Qualifiers: Diabetes mellitus residential insulin use: with residential use Qualified Code(s): E11.65 - Type 2 diabetes mellitus with hyperglycemia; Z79.4 - [facility] (current) use of insulin (3) Altered mental status: Status: Acute Qualifiers: Altered mental status type: somnolence Qualified Code(s): R40.0 - Somnolence Reason for Visit Reason for Visit: UNRESPONSIVE Brief History: Kiah Hawkins is a 59 year old female with past medical history of type 2 diabetes mellitus, transaminitis, history of seizures secondary to hyperglycemia was brought in by EMS for unresponsiveness. Family witnessed a seizure so did the EMS. EMS recorded her blood sugar to be very high. As per the EMS the family informed that she drank a large milkshake following which the family tried to arouse her but she was not arousable. She was given 2.5 mg of Versed IV en route by EMS for seizure activity. Family not available at bedside for providing history. 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 On arrival in the ER she was found to be combative and agitated, was likely postictal, was given IV morphine and Ativan. During my assessment she is drowsy but responsive to verbal stimuli and answering some questions appropriately. In ER she was again found to have blood sugar very high 739, received IV regular insulin 10 units. Current blood sugars 366. She has an anion gap of 25 pH 7.38 Lactic acid 4.5 U tox positive for amphetamine Hospital Course Hospital Course Kiah Hawkins is a 59 year old female with past medical history of type 2 diabetes mellitus, transaminitis, history of seizures secondary to hyperglycemia was brought in by EMS for unresponsiveness. Family witnessed a seizure so did the EMS. #Seizure episode- likely secondary to hyperglycemia at home As per the PCP note her current HbA1c is 9.1 She states she has been taking medications regularly As per the family she drank a large milkshake this morning since she was feeling dizzy following which the event happened. On arrival in ER blood sugar was 739. Received 10 units of regular insulin in ER, current blood sugar is 366 pH is 7.28, sodium 127, anion gap 27, lactic acid 4.5 abnormalities due to hyperglycemia, will monitor. 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 Will do correction scale insulin every 2 hours POC glucose check every 2 hours Continue cardiac telemetry monitoring N.p.o. for now Seizure precautions Fall precautions #Leukocytosis-WBCs 11.76 likely is stress-induced Will hold off on antibiotics for now #UTox positive for amphetamine. Continue to monitor for nausea and vomiting. 05/13/24 She is doing much better, is alert, awake and oriented x3 Lweucocytosis resolved. Did not have any acute overnight events including seizures Blood sugars have been good. hyponatremia and lactic acidosis resolved. Will discharge her home today and need to follow up with PCP on 05/16. Physical Exam Narrative: She is alert awake oriented x 3, not in acute distress Chest clear to auscultation bilaterally Cardiovascular normal heart sounds no murmurs Abdomen soft nontender nondistended normal bowel sounds Extremities no edema noted bilateral lower extremity Urinary Catheter Management: Amin: Cath Placed During This Visit: yes, but has since been removed by the nurse Reason for Continuing Indwelling Catheter: Decision to DC Catheter Urinary Catheter Date of Insertion: 05/12/24 Urinary Catheter Time of Insertion: 15:34 Date Urinary Catheter Removed: 05/13/24 Time Urinary Catheter Discontinued: 08:05 Discharge Data Studies Completed and Pending Completed Studies During Hospitalization Category Date Time Status CT head wo con* [id number] Stat Cat Scan 05/12/24 16:26 Completed XR chest 1V portable [id number] Stat Exams 05/12/24 14:30 Completed Pending at discharge Category Date Time Status Comprehensive Metabolic Panel AM LABS Lab 05/14/24 04:00 Ordered Comprehensive Metabolic Panel AM LABS Lab 05/15/24 04:00 Ordered Magnesium AM LABS Lab 05/14/24 04:00 Ordered Magnesium AM LABS Lab 05/15/24 04:00 Ordered Radiology Impressions Chest X-Ray 05/12/24 14:30 IMPRESSION: No acute findings. Head CT 05/12/24 16:26 IMPRESSION: There mild are senescent changes of the brain as described above. No evidence for large acute ischemic infarction or acute intracranial injury. Laboratory Results WBC 8.97 10^3/uL (3.29-11.43) 05/13/24 03:16 RBC 5.10 10^6/uL (3.85-5.65) 05/13/24 03:16 Hgb 13.30 g/dL (11.27-16.99) 05/13/24 03:16 Hct 39.9 % (36-47) 05/13/24 03:16 MCV 78.2 fl (85-98) L 05/13/24 03:16 MCH 26.1 pg (27-33) L 05/13/24 03:16 MCHC 33.3 g/dL (30-55) D 05/13/24 03:16 RDW 12.5 % (12.1-15.1) 05/13/24 03:16 Plt Count 199 10^3/cmm (157-399) 05/13/24 03:16 MPV 10.2 fL (7.4-10.4) 05/13/24 03:16 Neut % (Auto) 63.2 % 05/13/24 03:16 Lymph % (Auto) 27.9 % 05/13/24 03:16 [place] % (Auto) 7.2 % 05/13/24 03:16 Eos % (Auto) 0.9 % 05/13/24 03:16 Baso % (Auto) 0.4 % 05/13/24 03:16 Neut # (Auto) 5.66 10^3/uL (1.8-7.7) 05/13/24 03:16 Lymph # (Auto) 2.5 10^3/uL (0.8-4.8) 05/13/24 03:16 [place] # (Auto) 0.7 10^3/uL (0.2-0.9) 05/13/24 03:16 Eos # (Auto) 0.1 10^3/uL (0.0-0.8) 05/13/24 03:16 Baso # (Auto) 0.0 10^3/uL (0.0-0.1) 05/13/24 03:16 Nucleated RBC % (auto) 0 % 05/13/24 03:16 Nucleated RBCs # 0.0 /100WBC 05/13/24 03:16 Specimen Type Arterial 05/12/24 14:46 Sample Site Radial, right 05/12/24 14:46 ABG pH 7.38 (7.35-7.45) 05/12/24 14:46 ABG pCO2 36.8 mmHg (35-45) 05/12/24 14:46 ABG pO2 99.0 mmHg (80.0-100.0) 05/12/24 14:46 ABG PO2/FiO2 Ratio 471 05/12/24 14:46 ABG HCO3 21.7 mmol/L (22-26) L 05/12/24 14:46 ABG O2 Saturation 98.4 05/12/24 14:46 ABG Base Excess -2.9 mmol/L (-2.0-2.0) L 05/12/24 14:46 Zac Test Pos 05/12/24 14:46 A-a O2 Gradient 0.6 mmHg (5-10) L 05/12/24 14:46 Hematocrit 46.2 % (37-47) 05/12/24 14:46 Hgb O2 Saturation 96.4 % (95-100) 05/12/24 14:46 Carboxyhemoglobin 1.1 %THgb (0.4-20.1) 05/12/24 14:46 Methemoglobin 0.9 % (0.4-1.5) 05/12/24 14:46 Total Hemoglobin 15.1 g/dL (12-16) 05/12/24 14:46 Sodium 131.0 mmol/L (131-143) 05/12/24 14:46 Potassium 4.3 mmol/L (3.5-5.0) 05/12/24 14:46 Glucose 622.0 mg/dL (70-115) H 05/12/24 14:46 Ionized Calcium 1.2 mmol/L (1.1-1.4) 05/12/24 14:46 O2 Delivery Device Room air 05/12/24 14:46 FiO2 21.0 % 05/12/24 14:46 Pool Table Mechanic ID [place] 05/12/24 14:46 Sodium 139 mmol/L (136-145) 05/13/24 03:16 Potassium 3.1 mmol/L (3.5-5.1) L 05/13/24 03:16 Chloride 107 mmol/L (98-107) 05/13/24 03:16 Carbon Dioxide 26 mmol/L (22-29) 05/13/24 03:16 Anion Gap 9.1 (5-19) 05/13/24 03:16 BUN 4 mg/dL (6-20) L 05/13/24 03:16 Creatinine 0.7 mg/dL (0.5-0.9) 05/13/24 03:16 GFR Calculation 85.9 mL/min (90-130) L 05/13/24 03:16 Glucose 93 mg/dL (65-115) 05/13/24 03:16 POC Glucose 202 mg/dL (70-110) H 05/13/24 09:53 Calculated Osmolality 285 mOsm/kg (285-295) 05/13/24 03:16 Lactic Acid 1.1 mmol/L (0.5-2.2) 05/13/24 03:16 Lactic Acid (Sepsis) 1.6 mmol/L (0.5-2.2) 05/12/24 19:03 Calcium 8.4 mg/dL (8.5-10.5) L 05/13/24 03:16 Magnesium 1.8 mg/dL (1.7-2.3) 05/13/24 03:16 Total Bilirubin 0.5 mg/dL (0.15-1.2) 05/13/24 03:16 AST 29 U/L (0-32) 05/13/24 03:16 ALT 23 U/L (0-33) 05/13/24 03:16 Alkaline Phosphatase 107 U/L (35-105) H 05/13/24 03:16 NT-Pro-B Natriuret Pep 110 pg/mL (0-125) 05/12/24 13:50 Total Protein 5.3 g/dL (6.6-8.7) L D 05/13/24 03:16 Albumin 3.3 g/dL (3.5-5.2) L 05/13/24 03:16 Globulin 2.0 g/dL (1.3-4.6) 05/13/24 03:16 Lipase 55 U/L (13-60) 05/12/24 13:50 Procalcitonin 0.07 ng/mL (0-0.5) 05/12/24 13:50 Urine Color Yellow (Yellow) 05/12/24 15:00 Urine Appearance Clear (CLEAR) 05/12/24 15:00 Urine pH 5.5 (5-7) 05/12/24 15:00 Ur Specific [place] 1.031 (1.005-1.030) H 05/12/24 15:00 Urine Protein Negative (Negative) 05/12/24 15:00 Urine Glucose (UA) 3+ (Normal) H 05/12/24 15:00 Urine Ketones Negative (Negative) 05/12/24 15:00 Urine Blood Negative (Negative) 05/12/24 15:00 Urine Nitrate Negative (Negative) 05/12/24 15:00 Urine Bilirubin Negative (Negative) 05/12/24 15:00 Urine Urobilinogen 1.0 mg/dL (Negative) 05/12/24 15:00 Ur Leukocyte Esterase Negative (Negative) 05/12/24 15:00 Urine RBC 0-2 /hpf (0-2) 05/12/24 15:00 Urine WBC 0-5 /hpf (0-5) 05/12/24 15:00 Ur Squamous Epith Cells 0-5 /hpf (0-5) 05/12/24 15:00 Amorphous Sediment Not Reportable 05/12/24 15:00 Urine Bacteria None seen /hpf (NONE) 05/12/24 15:00 Hyaline Casts 4.11 /lpf 05/12/24 15:00 Urine Opiates Screen Negative ng/mL (Negative) 05/12/24 15:00 Ur Barbiturates Screen Negative ng/mL (Negative) 05/12/24 15:00 Ur Phencyclidine Scrn Negative ng/mL (Negative) 05/12/24 15:00 Ur Amphetamines Screen Positive ng/mL (Negative) H 05/12/24 15:00 U Benzodiazepines Scrn Negative ng/mL (Negative) 05/12/24 15:00 Urine Cocaine Screen Negative ng/mL (Negative) 05/12/24 15:00 U Marijuana (THC) Screen Negative ng/mL (Negative) 05/12/24 15:00 Serum Ketones Negative (Negative) 05/12/24 13:50 Vitals Last Vital Signs Temp 98.2 F 05/13/24 07:58 Pulse 86 05/13/24 11:33 Resp 18 05/13/24 11:33 BP 120/83 05/13/24 11:33 Pulse Ox 97 05/13/24 11:33 O2 Del Method Room Air 05/13/24 11:33 Discharge Plan Discharge Patient Disposition: Home Condition: Stable Prescriptions: Continued aspirin 81 mg tablet,delayed release (DR/EC) 81 mg PO DAILY 90 Days Qty: 90 0RF GlucaGen HypoKit 1 mg recon soln 1 mg SUBCUT Q20M PRN (Reason: hypoglycemia) Qty: 1 0RF Rx Instructions: until target blood sugar attained tramadol 50 mg tablet 50 mg PO Q6H PRN (Reason: pain) 5 Days Qty: 20 0RF Changed insulin glargine [Lantus Solostar U-100 Insulin] 100 unit/mL (3 mL) insulin pen 20 unit SUBCUT QAM Qty: 15 6RF Discontinued Januvia 25 mg tablet See Rx Instructions .ROUTE .COMPLEX Qty: 30 5RF Dose Instruction: TAKE 1 TABLET BY MOUTH DAILY FOR 30 DAYS Rx Instructions: TAKE 1 TABLET BY MOUTH DAILY FOR 30 DAYS No Action (DME) blood sugar diagnostic Strip See Rx Instructions .Route Qty: 100 5RF Rx Instructions: use to check blood sugar once daily: One Touch Verio Strips Discharge Orders: Discharge Order (Routine); Ordered 05/13/24 Ordered By: Bere Tony Referrals: Miguel A Sharma FNP [Primary Care Provider] - Discharge Diet: Diabetic Discharge Activity: Increase activity as tolerated Patient Instructions: Opioid Safety Discharge Attestations Time Spent in Discharge Care*: less than 30 min Quality Metrics Clinical Quality Measures [ No reported AMI, CVA or VTE this stay] Coding Level of Care Code Acute Code for Chg Fwd Diagnoses Seizure R56.9 Hyperglycemia due to type 2 diabetes mellitus E11.65; Z79.4 Diabetes mellitus residential insulin use: with residential use Altered mental status R40.0 Altered mental status type: somnolence Time Spent (min) 20
[2024-05-13 11:48] LABS: Glucose Point of Care 180 mg/dL (70-110)
--- NOTE | 2024-05-13 13:19 | PC.NURSE ---
Discharge paperwork discussed with patient and . All questions were answered. IVs were removed. Patient independently dressed self. Patient exited facility via wheelchair, escorted by PUNEET Neff
[2024-05-13 13:21] VITALS: BP 120/83; PULSE 86; RESP 18; O2SAT 97
== END 2024-05-13 12:55 | disposition home or self-care (01) | DRG 638 ==
LOC: ER 18:24 → MEDSURG 19:18
PROVIDERS: Admitting Provider Internal Medicine; Emergency Provider Emergency Medicine; PCP Nurse Practitioner Family; Visit Provider Internal Medicine
DX: E11.65 Type 2 diabetes mellitus with hyperglycemia (principal); G40.89 Other seizures; F15.90 Other stimulant use, unspecified, uncomplicated; F17.220 Nicotine dependence, chewing tobacco, uncomplicated; R41.82 Altered mental status, unspecified; Z79.82 Long term (current) use of aspirin; Z79.84 Long term (current) use of oral hypoglycemic drugs; Z79.891 Long term (current) use of opiate analgesic; Z79.4 Long term (current) use of insulin; Z88.3 Allergy status to other anti-infective agents; Z88.2 Allergy status to sulfonamides; Z80.41 Family history of malignant neoplasm of ovary; Z82.49 Family history of ischemic heart disease and other diseases of the circulatory system
CPT/HCPCS: 36415; 36416; 36600; 51702; 70450; 71045; 80051; 80053; 80306; 81001; 82009; 82330; 82805; 82962; 83605; 83690; 83735; 83880; 84145; 85025; 93005; 94664; 96361; 96372; 96374; 96375; 99291; 99292; J1644; J1815; J2060; J2270; J2405; J3490; J7030

== ENCOUNTER → 2024-07-10 10:15 | Outpatient (BNVA) | payer MEDICAID, SELFPAY | PROVIDERS: PCP Nurse Practitioner Family; Visit Provider Physician Assistant | DX: Z98.890 Other specified postprocedural states (principal) | CPT/HCPCS: 99213 ==

== ENCOUNTER → 2024-08-17 13:45 | Outpatient (BNVA) | payer MEDICAID, SELFPAY | PROVIDERS: PCP Nurse Practitioner Family; Visit Provider Internal Medicine | DX: E11.9 Type 2 diabetes mellitus without complications (principal); Z79.4 Long term (current) use of insulin; N18.2 Chronic kidney disease, stage 2 (mild) | CPT/HCPCS: 36415; 80053; 80061; 82044; 83036; 86337; 86341 ==

== ENCOUNTER → 2024-09-07 10:56 | Outpatient (BNVA) | payer MEDICAID, SELFPAY | PROVIDERS: PCP Nurse Practitioner Family; Visit Provider Internal Medicine | DX: E11.9 Type 2 diabetes mellitus without complications (principal); Z79.4 Long term (current) use of insulin; N18.2 Chronic kidney disease, stage 2 (mild); G47.9 Sleep disorder, unspecified; E78.2 Mixed hyperlipidemia | CPT/HCPCS: 99214 ==

== ENCOUNTER → 2024-11-19 11:03 | Outpatient (BNVA) | payer MEDICAID, SELFPAY | PROVIDERS: PCP Nurse Practitioner Family; Visit Provider Internal Medicine | DX: E11.9 Type 2 diabetes mellitus without complications (principal); Z79.4 Long term (current) use of insulin; G47.9 Sleep disorder, unspecified; N18.2 Chronic kidney disease, stage 2 (mild) | CPT/HCPCS: 80053; 80061; 82043; 83036; 84681 ==

== ENCOUNTER → 2024-12-07 10:05 | Outpatient (BNVA) | payer MEDICAID, SELFPAY | PROVIDERS: PCP Nurse Practitioner Family; Visit Provider Internal Medicine | DX: E11.9 Type 2 diabetes mellitus without complications (principal); Z79.4 Long term (current) use of insulin; N18.2 Chronic kidney disease, stage 2 (mild); E78.2 Mixed hyperlipidemia | CPT/HCPCS: 99214 ==

== ENCOUNTER → 2025-04-03 15:39 | Outpatient (BNVA) | payer MEDICAID, SELFPAY | PROVIDERS: PCP Nurse Practitioner Family; Visit Provider Nurse Practitioner Family | DX: E78.2 Mixed hyperlipidemia (principal); E11.9 Type 2 diabetes mellitus without complications; Z79.4 Long term (current) use of insulin | CPT/HCPCS: 80053; 83036; 84443; 85025 ==